=== PATIENT | male | born 1945 | race Caucasian/White ===

== ENCOUNTER 2023-03-04 10:12 | Observation (INO) | payer MEDICARE ==
[2023-03-04] MEDS ORDERED: VANCOMYCIN IV PER PHARMACY 1 EACH MISC MISCELLANE PRN (10:55)
[2023-03-04] MEDS ORDERED: VANCOMYCIN 2,000 MG in SODIUM CHLORIDE 0.9% 500 ML 500 ML IVPB STA (11:00)
[2023-03-04] MEDS ORDERED: NALOXONE 0.4 MG/ML 1 ML VIAL IV PRN (11:33)
[2023-03-04] MEDS ORDERED: ACETAMINOPHEN TAB 325 MG TAB PO PRN (11:33)
--- NOTE | 2023-03-04 11:41 | ED ---
General Adult HPI - General Chief complaint: Extremity Problem,Nontraumatic Stated complaint: Infection in Right arm Time Seen by Provider: 03/04/23 10:15 Source: patient, RN notes reviewed, old records reviewed Mode of arrival: ambulatory - History of Present Illness Initial comments: 77-year-old male presenting for evaluation of pain and swelling in the right arm. Patient had been gardening approximately one week ago and had a foreign to the proximal palm of his right hand. He had surrounding erythema and swelling which has progressed up the extremity. He has received IV antibiotics at an outside facility, IV ceftriaxone and has been on Augmentin and doxycycline orally for the past several days. He has had no measured fever but has had chills. He is a nondiabetic, history of hypertension. - Related Data Allergies Allergy/AdvReac Type Severity Reaction Status Date / Time No Known Allergies Allergy Verified 03/04/23 10:38 Review of Systems ROS Statement: Those systems with pertinent positive or pertinent negative responses have been documented in the HPI. ROS Other: All systems not noted in ROS Statement are negative. Past Medical History Past Medical History: Hypertension History of Any Multi-Drug Resistant Organisms: None Reported Past Surgical History: Bariatric Surgery, Cholecystectomy Additional Past Surgical History / Comment(s): gastric bypass, Past Psychological History: Depression Smoking Status: Never smoker Past Alcohol Use History: None Reported Past Drug Use History: None Reported General Exam General appearance: alert, in no apparent distress Head exam: Present: atraumatic, normocephalic Eye exam: Present: normal appearance, PERRL ENT exam: Present: normal exam Neck exam: Present: normal inspection. Absent: tenderness, meningismus Respiratory exam: Present: normal lung sounds bilaterally. Absent: respiratory distress Cardiovascular Exam: Present: regular rate, normal rhythm GI/Abdominal exam: Present: soft. Absent: distended, tenderness Extremities exam: Present: other (Erythema and soft tissue swelling of the right upper extremity from the wrist to the elbow. There is induration on the palmar side of the distal forearm. There is no abscess or palpable fluid collection. The range of motion at the wrist is normal. Range of motion of the digits is normal.) Neurological exam: Present: alert, oriented X3, CN II-XII intact. Absent: motor sensory deficit Psychiatric exam: Present: normal affect, normal mood Skin exam: Present: warm Course Vital Signs 03/04/23 10:32 Temperature 97.6 F Pulse Rate 68 Respiratory 20 Rate Blood Pressure 144/71 O2 Sat by Pulse 94 L Oximetry Medical Decision Making - Medical Decision Making Was pt. sent in by a medical professional or institution (TASH Cardona, RADIOLOGY MANAGER, urgent care, hospital, or half-way...) When possible be specific @ -No Did you speak to anyone other than the patient for history (EMS, parent, family, police, friend...)? What history was obtained from this source @ Case discussed with physician caring for the patient prior to arrival. Did you review nursing and triage notes (agree or disagree)? Why? @ -I reviewed and agree with nursing and triage notes Were old charts reviewed (outside hosp., previous admission, EMS record, old EKG, old radiological studies, urgent care reports/EKG's, half-way records)? Report findings @ -No old charts were reviewed Differential Diagnosis (chest pain, altered mental status, abdominal pain women, abdominal pain men, vaginal bleeding, weakness, fever, dyspnea, syncope, headache, dizziness, GI bleed, back pain, seizure, CVA, palpatations, mental health, musculoskeletal)? @ -[Abscess, cellulitis, necrotizing fasciitis EKG interpreted by me (3pts min.). @ -As above X-rays interpreted by me (1pt min.). @ -None done CT interpreted by me (1pt min.). @ -None done U/S interpreted by me (1pt. min.). @ -Right upper extremity ultrasound ordered, results pending What testing was considered but not performed or refused? (CT, X-rays, U/S, labs)? Why? @ -None What meds were considered but not given or refused? Why? @ -None Did you discuss the management of the patient with other professionals (professionals i.e. TASH Cardona, RADIOLOGY MANAGER, lab, RT, psych nurse, social sciences professor, antique refinisher, teacher, evp and chief operating officer, telephonic nurse case manager)? Give summary @ -[Case discussed with sound physician group. Family requests sound physician group. Was smoking cessation discussed for >3mins.? @ -No Was critical care preformed (if so, how long)? @ -No Were there social determinants of health that impacted care today? How? (Homelessness, low income, unemployed, alcoholism, drug addiction, transportation, low edu. Level, literacy, decrease access to med. care, snf, rehab)? @ -No Was there de-escalation of care discussed even if they declined (Discuss DNR or withdrawal of care, Hospice)? DNR status @ -No What co-morbidities impacted this encounter? (DM, HTN, Smoking, COPD, CAD, Cancer, CVA, ARF, Chemo, Hep., AIDS, mental health diagnosis, sleep apnea, morbid obesity)? @ -[Hypertension Was patient admitted / discharged? Hospital course, mention meds given and route, prescriptions, significant lab abnormalities, going to OR and other pertinent info. @ -77-year-old male presenting for evaluation of right upper extremity pain and erythema. Patient had been gardening approximately one week ago had a thorn to his distal palm. He had surrounding erythema and swelling which rapidly progressed he did appropriately treated on oral antibiotics and has received IV antibiotics at outside facility within the past several days. Blood cultures, laboratory testing, ultrasound has been ordered. Results are pending. Patient will be admitted to [facility]. Undiagnosed new problem with uncertain prognosis? @ -No Drug Therapy requiring intensive monitoring for toxicity (Heparin, Nitro, Insulin, Cardizem)? @ -No Were any procedures done? @ -No Diagnosis/symptom? @ Right upper extremity cellulitis failed outpatient treatment Acute, or Chronic, or Acute on Chronic? @ -[Acute Uncomplicated (without systemic symptoms) or Complicated (systemic symptoms)? @ -default Side effects of treatment? @ -No Exacerbation, Progression, or Severe Exacerbation? @ -No Poses a threat to life or bodily function? How? (Chest pain, [place], [place], pneumonia, PE, COPD, DKA, ARF, appy, cholecystitis, CVA, Diverticulitis, Homicidal, Suicidal, threat to staff... and all critical care pts) @ Yes, sepsis Disposition Clinical Impression: Failure of outpatient treatment, Right arm cellulitis Disposition: ADMITTED IP TO THIS [facility] Condition: Stable Is patient prescribed a controlled substance at d/c from ED?: No Referrals: Parisa Hernandez DO [Primary Care Provider] - 1-2 days Time of Disposition: 11:40
[2023-03-04 12:31] LABS: Basophils % (A) 0 %; Eosinophils # (A) 0.3 k/uL (0-0.7); Eosinophils % (A) 3 %; HCT 35.5 % (39.0-53.0); HGB 11.1 gm/dL (13.0-17.5); Hypochromasia Moderate; Lymphocytes % (A) 12 %; MCH 27.7 pg (25.0-35.0); MCHC 31.1 g/dL (31.0-37.0); MCV 88.9 fL (80.0-100.0); Mean Platelet Volume 9.6; Monocytes # (A) 0.7 k/uL (0-1.0); Monocytes % (A) 8 %; Neutrophils # (A) 6.4 k/uL (1.3-7.7); Neutrophils % (A) 75 %; Platelet Count 188 k/uL (150-450); RBC 3.99 m/uL (4.30-5.90); RDW 15.3 % (11.5-15.5); WBC 8.6 k/uL (3.8-10.6)
[2023-03-04] MEDS: AMPICILLIN-SULBACTAM 3 GM in SODIUM CHLORIDE 0.9% 100 ML IVPB SCH ×2 (12:35→16:04)
[2023-03-04] MEDS: SODIUM CHLORIDE 0.9% 1,000 ML IV SCH ×2 (12:37→18:09)
[2023-03-04 12:46] LABS: Partial Thromboplastin Time 24.2 sec (22.0-30.0); Prothrombin Time 10.2 sec (9.0-12.0)
[2023-03-04 13:07] LABS: ALT 14 U/L (4-49); African American GFR (CKD) >90 (>60 ml/min/1.73 sqM); Anion Gap 6 mmol/L; Blood Urea Nitrogen 9 mg/dL (9-20); Calcium 8.2 mg/dL (8.4-10.2); Carbon Dioxide 25 mmol/L (22-30); Chloride 104 mmol/L (98-107); Glucose 82 mg/dL (74-99); Non-African American GFR(CKD) >90 (>60 ml/min/1.73 sqM); Sodium 135 mmol/L (137-145); Total Bilirubin 0.8 mg/dL (0.2-1.3)
[2023-03-04 13:11] LABS: AST 52 U/L (17-59); Albumin 3.1 g/dL (3.5-5.0); Alkaline Phosphatase 64 U/L (38-126); Potassium 5.1 mmol/L (3.5-5.1); Total Protein 6.7 g/dL (6.3-8.2)
--- NOTE | 2023-03-04 14:05 | US ---
EXAMINATION TYPE: US venous doppler duplex UE LT DATE OF EXAM: 03/04/2023 COMPARISON: NONE CLINICAL INDICATION: Male, 77 years old with history of pain/swelling; right arm infection, r/o dvt SIDE PERFORMED: right Right Arm: Negative for DVT IMPRESSION: Grayscale, color doppler, spectral doppler imaging performed of the deep veins of the upper extremiti es. There is normal flow, compressibility and vascular waveforms.
--- NOTE | 2023-03-04 15:06 | P.HPIM ---
History of Present Illness H&P Date: 03/04/23 Patient is a 77-year-old male with history of hypertension, peptic ulcer disease, depression presenting with right arm erythema, pain, and edema. He was working with plants 1 week ago, and had a puncture wound on right anterior wrist. He waited 2 days, and noticed that his arm was becoming more swollen and redness was moving more proximal. He was then started on oral antibiotics, also decided to go to an urgent care was given Rocephin IM, 2 doses. Was recommended to be admitted but he would needed to be transferred, so he decided to go home. However due to worsening edema, erythema, and pain is presenting to our facility for further care. He denies any chest pain, shortness of breath, abdominal pain, nausea, vomiting, urinary or bowel complaints. He claims that he has some chills, but denies any fevers. He denies any smoking, alcohol use, illicit drug use. In the ED, temperature was 97.6, pulse 68, respiratory 20, blood pressure 144/71, saturating at 94% on room air. WBC 8.6, hemoglobin 11.1, platelet 188, sodium 135, potassium slightly hemolyzed at 5.1, creatinine 0.69. Right arm Doppler was negative for DVT. Patient started on IV vancomycin, and IV Unasyn, as well as IV fluids. He is being admitted for cellulitis of right arm, failed outpatient antibiotic therapy. Pertinent positives and negatives as discussed in HPI, a complete review of systems was performed and all other systems are negative. Patient seen and examined at bedside. Vital signs reviewed General: nontoxic, no distress, appears at stated age, morbidly obese Derm: warm, dry, right forearm erythema, edema, tenderness to palpation starting at right anterior wrist and tracking up to proximal elbow Head: atraumatic, normocephalic, symmetric Eyes: EOMI, no lid lag, anicteric sclera, pupils equal round reactive to light ENT: Nose and ears atraumatic Neck: No thyromegaly, supple Mouth: no lip lesion, mucus membranes moist Cardiovascular: S1S2 reg, no murmur, no edema Lungs: clear to auscultation bilateral, no rhonchi, no rales, no wheeze, no accessory muscle use Abdominal: soft, nontender to palpation, no guarding, no appreciable organomegaly Ext: no gross muscle atrophy, muscle strength muscle strength 5 out of 5 in all 4 extremities, no contractures Neuro: CN II-XII grossly intact Psych: Alert, oriented, appropriate affect Assessment/Plan: Active: Right arm cellulitis, failed outpatient antibiotic therapy Normocytic anemia -Continue IV vancomycin and IV Unasyn, monitor renal function for renal toxicity -ID and orthopedic surgery consulted -Blood cultures pending -No active bleeding, continue to monitor hemoglobin Chronic: Hypertension Peptic ulcer disease Depression Morbid obesity The patient is admitted with an anticipated greater than 2 midnight stay as inpatient status for evaluation of right arm cellulitis. Surrogate decision-maker: CODE STATUS: Full code DVT prophylaxis: sq heparin Anticipated discharge date: Pending clinical course Anticipated discharge place: Pending clinical course A total of 55 minutes was spent on the care of this complex patient more than 50% of the time was spent in counseling and care coordination. Past Medical History Past Medical History: Hypertension History of Any Multi-Drug Resistant Organisms: None Reported Past Surgical History: Bariatric Surgery, Cholecystectomy Additional Past Surgical History / Comment(s): gastric bypass, Past Psychological History: Depression Smoking Status: Never smoker Past Alcohol Use History: None Reported Past Drug Use History: None Reported Medications and Allergies Allergies Allergy/AdvReac Type Severity Reaction Status Date / Time No Known Allergies Allergy Verified 03/04/23 10:38 Physical Exam Vitals: Vital Signs Temp Pulse Resp BP Pulse Ox 03/04/23 14:55 98.5 F 60 17 148/75 96 03/04/23 12:45 98.2 F 61 17 134/65 95 03/04/23 10:32 97.6 F 68 20 144/71 94 L Intake and Output 03/04/23 03/04/23 03/04/23 06:59 14:59 22:59 Other: Weight 133.81 kg Results CBC & Chem 7: 03/04/23 12:10 03/04/23 12:10 Labs: Abnormal Lab Results - Last 24 Hours (Table) 03/04/23 03/04/23 Range/Units 12:10 12:10 RBC 3.99 L (4.30-5.90) m/uL Hgb 11.1 L (13.0-17.5) gm/dL Hct 35.5 L (39.0-53.0) % Sodium 135 L (137-145) mmol/L Calcium 8.2 L (8.4-10.2) mg/dL Albumin 3.1 L (3.5-5.0) g/dL
--- NOTE | 2023-03-04 15:58 | P.CNOR ---
History of Present Illness - [facility] Consult date: 03/04/23 Consult reason: other (Right upper extremity cellulitis) History of present illness: Patient is a 77-year-old male who presented to [facility] for further evaluation of right upper extremity swelling and cellulitis. Patient was doing some gardening about a week ago when he was poked by a thorn on the volar aspect of his right wrist. Patient developed swelling and redness over the next few days. Patient was evaluated in the outpatient setting in an urgent care, he was given an intramuscular injection of antibiotics and started on oral antibiotics. Symptoms have progressively gotten worse, he did report to the hospital today for further evaluation. Patient was evaluated today at bedside in the emergency room, he was resting comfortably, patient does not appear septic. He notes most discomfort when his arm is pain down at his side, he notes more of a swelling type discomfort in the extremity and hand. He denies any loss of sensation in the hand, wrist and forearm at this time. He denies any significant pain with range of motion of the fingers, wrist, elbow. Besides being poked by the thorn, he denies any recent trauma to the repair extremity. He denies any previous surgery to the right upper extremity. He denies any fevers or chills.. Review of Systems Constitutional: Reports as per [facility] Past Medical History Past Medical History: Hypertension History of Any Multi-Drug Resistant Organisms: None Reported Past Surgical History: Bariatric Surgery, Cholecystectomy Additional Past Surgical History / Comment(s): gastric bypass, Past Psychological History: Depression Smoking Status: Never smoker Past Alcohol Use History: None Reported Past Drug Use History: None Reported Medications and Allergies Allergies Allergy/AdvReac Type Severity Reaction Status Date / Time No Known Allergies Allergy Verified 03/04/23 10:38 Physical Examination Right upper extremity: No obvious open lesions, sores or areas of drainage present to the right upper extremity. There is significant erythema noted mainly on the volar aspect of the wrist and forearm, there is mild erythema noted on the dorsum of the forearm. There is obvious soft tissue swelling present from the wrist to proximal third of the forearm. Patient is able to wiggle all his fingers and make a fist with no difficulty. Extending and flexing the fingers reproduces no significant pain. Patient is able to extend and flex the wrist with minimal discomfort, this reproduces no severe pain in the forearm both volar and dorsal. Range of motion is intact at the elbow, there is no pain reproduced Patient demonstrates mild tenderness with palpation to the wrist and distal forearm on the volar aspect. No pain is reproduced on the dorsal aspect of the wrist and forearm with palpation. No tenderness with palpation surrounding the elbow. Sensation to light touch is intact throughout the extremity Radial/ulnar pulses are 2+ Results - Labs Labs: Abnormal Lab Results - Last 24 Hours (Table) 03/04/23 03/04/23 Range/Units 12:10 12:10 RBC 3.99 L (4.30-5.90) m/uL Hgb 11.1 L (13.0-17.5) gm/dL Hct 35.5 L (39.0-53.0) % Sodium 135 L (137-145) mmol/L Calcium 8.2 L (8.4-10.2) mg/dL Albumin 3.1 L (3.5-5.0) g/dL H & H 03/04/23 Range/Units 12:10 Hgb 11.1 L (13.0-17.5) gm/dL Hct 35.5 L (39.0-53.0) % Coagulation 03/04/23 Range/Units 12:10 INR 1.0 (<1.2) Result Diagrams: 03/04/23 12:10 03/04/23 12:10 Assessment and Plan Assessment: Right upper extremity cellulitis Recent puncture wound right volar wrist Other medical comorbidities Plan: I was able to discuss the case, this including both physical exam findings and laboratory studies with my attending Dr. Faulkner. No emergent orthopedic surgical intervention is recommended at this time. Low concern for abscess at this time Doppler was done of the right upper extremity which was negative for DVT Recommending IV antibiotics at this time, infectious disease has also been consulted Recommend icing and elevating of the right upper extremity, basic hand and wrist exercises also Other medical technician assistant recommendations appreciated We will continue to follow patient during inpatient stay Time with Patient: Less than 30
[2023-03-04] MEDS: HEPARIN SODIUM,PORCINE 5,000 UNIT/ML 1 ML VIAL SQ SCH ×2 (16:04→23:12)
[2023-03-04 21:54] VITALS: RESP 18
[2023-03-04] MEDS: VANCOMYCIN 2,000 MG in SODIUM CHLORIDE 0.9% 500 ML 500 ML IVPB SCH (22:17)
[2023-03-05] MEDS: AMPICILLIN-SULBACTAM 3 GM in SODIUM CHLORIDE 0.9% 100 ML IVPB SCH ×5 (01:31→23:12)
[2023-03-05] MEDS: SODIUM CHLORIDE 0.9% 1,000 ML IV SCH ×3 (02:10→20:58)
[2023-03-05 07:30] LABS: African American GFR (CKD) >90 (>60 ml/min/1.73 sqM); Anion Gap 5 mmol/L; Blood Urea Nitrogen 7 mg/dL (9-20); Calcium 7.8 mg/dL (8.4-10.2); Carbon Dioxide 25 mmol/L (22-30); Chloride 106 mmol/L (98-107); Glucose 83 mg/dL (74-99); Non-African American GFR(CKD) >90 (>60 ml/min/1.73 sqM); Potassium 4.1 mmol/L (3.5-5.1); Sodium 136 mmol/L (137-145)
[2023-03-05 07:32] LABS: African American GFR (CKD) >90 (>60 ml/min/1.73 sqM); Non-African American GFR(CKD) >90 (>60 ml/min/1.73 sqM)
[2023-03-05 07:35] LABS: Basophils % (A) 0 %; Eosinophils # (A) 0.3 k/uL (0-0.7); Eosinophils % (A) 3 %; HCT 35.1 % (39.0-53.0); HGB 10.6 gm/dL (13.0-17.5); Hypochromasia Marked; Lymphocytes # (A) 1.3 k/uL (1.0-4.8); Lymphocytes % (A) 15 %; MCH 27.5 pg (25.0-35.0); MCHC 30.2 g/dL (31.0-37.0); MCV 90.9 fL (80.0-100.0); Mean Platelet Volume 10.3; Monocytes # (A) 0.8 k/uL (0-1.0); Monocytes % (A) 9 %; Neutrophils # (A) 6.1 k/uL (1.3-7.7); Neutrophils % (A) 71 %; Platelet Count 186 k/uL (150-450); RBC 3.86 m/uL (4.30-5.90); RDW 15.2 % (11.5-15.5); WBC 8.6 k/uL (3.8-10.6)
[2023-03-05] MEDS: PANTOPRAZOLE 40 MG TABLET PO SCH (07:36)
[2023-03-05] MEDS: HEPARIN SODIUM,PORCINE 5,000 UNIT/ML 1 ML VIAL SQ SCH ×3 (07:37→23:12)
[2023-03-05] MEDS: METOPROLOL SUCCINATE (ER) 50 MG TAB.ER.24H PO SCH (08:14)
[2023-03-05] MEDS: lisinopriL 20 MG TAB PO SCH (08:14)
[2023-03-05] MEDS: VENLAFAXINE HCL ER 150 MG CAP PO SCH (08:14)
[2023-03-05] MEDS: VANCOMYCIN 2,000 MG in SODIUM CHLORIDE 0.9% 500 ML 500 ML IVPB SCH ×2 (10:32→23:11)
--- NOTE | 2023-03-05 14:28 | P.CONS ---
History of Present Illness - Reason for Consult Consult date: 03/04/23 Cellulitis Requesting physician: Edgar Santana - Chief Complaint Right upper extremity swelling and redness x few days - History of Present Illness Patient is a 77-year-old man with a past medical history significant for hypertension depression presented to the hospital with increasing swelling redness to the right upper extremity apparently about a week ago while gardening the patient did have a injury with the patient was poked by a Tori on the vola r aspect of his right wrist, 3 days later the patient having increasing swelling redness to the right forearm area for the patient was evaluated in urgent care the patient did received intramuscular Rocephin and subsequently sent on Keflex antibiotic was switched over to doxycycline and Augmentin however the patient noticed to have increasing swelling redness right upper extremity for the patient presented to the hospital for further evaluation. Patient denies having any fever or any chills and no fever has been recorded on presentation to the hospital patient was not bradycardic hypotensive or hypoxic did have a normal white count of 8.6 creatinine 0.69 lower enzymes are normal, patient did have a venous Doppler that was negative for DVT patient was started on Unasyn and vancomycin and infectious disease was consulted for further management of antibiotic therapy, patient currently may symptom remains to be significant swelling redness to the right upper arm did have some discomfort es pecially when touched but no open wound or any drainage patient has been evaluated by orthopedic recommending no surgical intervention at this point Review of Systems Positive point and negatives has been mentioned in the HPI, complete review of systems was performed and all other systems are negative Past Medical History Past Medical History: Hypertension History of Any Multi-Drug Resistant Organisms: None Reported Past Surgical History: Bariatric Surgery, Cholecystectomy Additional Past Surgical History / Comment(s): gastric bypass, Past Psychological History: Depression Smoking Status: Never smoker Past Alcohol Use History: None Reported Past Drug Use History: None Reported Medications and Allergies Home Medications Medication Instructions Recorded Confirmed Type Benazepril HCl 40 mg PO HS 03/04/23 03/04/23 History Magnesium(Unknown Dose) 1 tab PO HS 03/04/23 03/04/23 History Metoprolol Succinate [Toprol XL] 50 mg PO HS 03/04/23 03/04/23 History Multivitamins, Thera [Multivitamin 1 tab PO HS 03/04/23 03/04/23 History (formulary)] Omeprazole 20 mg PO HS 03/04/23 03/04/23 History Venlafaxine HCl [Effexor XR] 150 mg PO HS 03/04/23 03/04/23 History Vitamin B-12(Unknown Dose) 1 tab PO HS 03/04/23 03/04/23 History Cephalexin [Keflex] 500 mg PO Q6HR 10 Days #40 cap 03/07/23 Rx Doxycycline Hyclate 100 mg PO Q12H 10 Days #20 tab 03/07/23 Rx Allergies Allergy/AdvReac Type Severity Reaction Status Date / Time No Known Allergies Allergy Verified 03/04/23 15:49 Physical Exam Vitals: Vital Signs Temp Pulse Resp BP Pulse Ox 03/04/23 12:45 98.2 F 61 17 134/65 95 03/04/23 10:32 97.6 F 68 20 144/71 94 L Intake and Output 03/03/23 03/04/23 03/04/23 22:59 06:59 14:59 Other: Weight 133.81 kg GENERAL DESCRIPTION: Elderly male up in the chair, no distress. No tachypnea or accessory muscle of respiration use. HEENT: Shows Pallor , no scleral icterus. Oral mucous membrane is dry. NECK: Trachea central, no thyromegaly. LUNGS: Unlabored breathing. Clear to auscultation anteriorly. No wheeze or crackle. HEART: S1, S2, regular rate and rhythm. No loud murmur ABDOMEN: Soft, no tenderness , guarding or rigidity, no organomegaly EXTREMITIES: Right upper extremity with extensive diffuse swelling and redness which is warm and tender to touch no fluctuation or drainage SKIN: No rash, no masses palpable. NEUROLOGICAL: The patient is awake, alert, oriented x3, mood and affect normal. Results CBC & Chem 7: 03/05/23 06:31 03/07/23 09:26 Labs: Abnormal Lab Results - Last 24 Hours (Table) 03/04/23 Range/Units 12:10 RBC 3.99 L (4.30-5.90) m/uL Hgb 11.1 L (13.0-17.5) gm/dL Hct 35.5 L (39.0-53.0) % Assessment and Plan (1) Failure of outpatient treatment Status: Acute Code(s): Z78.9 - OTHER SPECIFIED HEALTH STATUS SNOMED Code(s): 362464408 (2) Right arm cellulitis Status: Acute Code(s): L03.113 - CELLULITIS OF RIGHT UPPER LIMB SNOMED Code(s): 071823206 Plan: 1patient with right upper extremity cellulitis in this patient with diffuse swelling and redness started with injury from a Tori in the garden more than 10 days ago before presentation to the hospital failing outpatient oral Keflex and doxycycline with a question of possible burden of disease 2-no evidence of any abscess and orthopedic recommending no surgical drainage 3-Dorian area of redness apply Andrew wrap to the right arm to keep some of the swelling down 4-patient to continue vancomycin for Marisela to dose 1 watching his kidney function closely along with Unasyn and see clinical response We will follow on clinical condition and cultures to further adjust medication if needed Thank you for this consultation will follow this patient with you Time with Patient: Greater than 30
--- NOTE | 2023-03-05 15:00 | P.PN ---
Subjective Progress Note Date: 03/05/23 Patient is a 77-year-old male with history of hypertension, peptic ulcer disease, depression presenting with right arm erythema, pain, and edema. He was working with plants 1 week ago, and had a puncture wound on right anterior wrist. Decided to go to an urgent care was given Rocephin IM, 2 doses. However due to worsening edema, erythema, and pain is presenting to our facility for further care. In the ED, temperature was 97.6, pulse 68, respiratory 20, blood pressure 144/71, saturating at 94% on room air. WBC 8.6, hemoglobin 11.1, platelet 188, sodium 135, potassium slightly hemolyzed at 5.1, creatinine 0.69. Right arm Doppler was negative for DVT. Patient started on IV vancomycin, and IV Unasyn, as well as IV fluids. He is being admitted for cellulitis of right arm, failed outpatient antibiotic therapy. 03/05 Patient seen and examined at bedside. He reports improvement in his RUE swelling but continues to have significant erythema extending to the right elbow. CBC shows Hg of 10.6. BMP shows Na 136, BUN 7, Ca 7.8. Blood culture prelim negative. General: nontoxic, no distress, appears at stated age, morbidly obese Derm: warm, dry, right forearm erythema, edema, tenderness to palpation starting at right anterior wrist and tracking up to proximal elbow Head: atraumatic, normocephalic, symmetric Eyes: EOMI, no lid lag, anicteric sclera ENT: Nose and ears atraumatic Cardiovascular: S1S2 reg, no murmur, no edema Lungs: clear to auscultation bilateral, no rhonchi, no rales, no wheeze, no accessory muscle use Ext: no gross muscle atrophy, muscle strength muscle strength 5 out of 5 in all 4 extremities, no contractures Psych: Alert, oriented, appropriate affect Right arm cellulitis, failed outpatient antibiotic therapy Normocytic anemia Hypertension Peptic ulcer disease Depression Morbid obesity Based on my assessment of this patient, this patient meets a high complexity level of care. Patient has an acute diagnosis of cellulitis failed outpatient treatment with unknown significance. Right arm cellulitis, failed outpatient antibiotic therapy: Continue Unasyn 3g IV Q6H + Vancomycin IV dosed per pharmacy. Daily BMP as Vancomycin is known to be nephrotoxic. Possibly coverage for Sporothrix if cellulitis does not improved. Normocytic anemia: Stable. Transfuse if Hg < 7. Hypertension Peptic ulcer disease Depression Morbid obesity I have reviewed the following websphere consultant notes: ID and orthopedic surgery note. I have reviewed the results of the following tests: CBC. BMP. BCx. I have ordered the following tests: BMP. Vancomycin trough. I have discussed the care of this patient with the following independent historian: I have independently interpreted the following test below: I have discussed the management of this patient with the following physician: Objective - Vital Signs Vital signs: Vital Signs Temp 98.5 F 03/04/23 18:08 Pulse 65 03/05/23 07:00 Resp 18 03/05/23 07:00 BP 141/64 03/05/23 07:00 Pulse Ox 95 03/05/23 07:00 FiO2 Intake & Output 03/04/23 03/05/23 03/05/23 18:59 06:59 18:59 Weight 133.81 kg - Labs CBC & Chem 7: 03/05/23 06:31 03/05/23 06:31 Labs: Abnormal Lab Results - Last 24 Hours (Table) 03/05/23 03/05/23 Range/Units 06:31 06:31 RBC 3.86 L (4.30-5.90) m/uL Hgb 10.6 L (13.0-17.5) gm/dL Hct 35.1 L (39.0-53.0) % MCHC 30.2 L (31.0-37.0) g/dL Sodium 136 L (137-145) mmol/L BUN 7 L (9-20) mg/dL Calcium 7.8 L (8.4-10.2) mg/dL
--- NOTE | 2023-03-05 15:49 | P.PN ---
Subjective Progress Note Date: 03/05/23 Principal diagnosis: Right upper extremity cellulitis; puncture wound right wrist Patient was seen at bedside this morning sitting up in chair still in the emergency department. Patient currently on IV Vanco. Patient notes no changes from yesterday. Patient doesn't note any decrease or increase in swelling in the right upper extremity. Patient states he does have good range of motion in the right hand last wrist as well as the right elbow. Patient says his pain is controlled with medication. Patient is wondering when the some of the swelling and redness will decrease his arm. Patient denies chest pain, fever, shortness of breath, nausea, vomiting, change in vision, loss of bowel/bladder control. Objective - Vital Signs Vital signs: Vital Signs Temp 98.5 F 03/04/23 18:08 Pulse 65 03/05/23 07:00 Resp 18 03/05/23 07:00 BP 141/64 03/05/23 07:00 Pulse Ox 95 03/05/23 07:00 FiO2 Intake & Output 03/04/23 03/05/23 03/05/23 18:59 06:59 18:59 Weight 133.81 kg - Exam Right upper extremity presents with erythema from the volar aspect of the proximal right hand all the way up proximally to the right elbow. Swelling is present diffusely throughout the right hand and in the right forearm to the elbow. Sensation is equal, symmetric 1 by intact throughout the upper and lower extremities. There is some tenderness to palpation diffusely throughout the forearm where the erythema is present. Patient does have good range of motion throughout the right wrist in flexion/extension and right elbow in flexion/extension.4/5 in all major motor groups in right upper extremity. Radial pulses intact, 2+. Cap refill under 3 seconds in digits the upper extremities. Negative Homans bilaterally. - Labs CBC & Chem 7: 03/05/23 06:31 03/05/23 06:31 Labs: Abnormal Lab Results - Last 24 Hours (Table) 03/04/23 03/04/23 03/05/23 Range/Units 12:10 12:10 06:31 RBC 3.99 L 3.86 L (4.30-5.90) m/uL Hgb 11.1 L 10.6 L (13.0-17.5) gm/dL Hct 35.5 L 35.1 L (39.0-53.0) % MCHC 30.2 L (31.0-37.0) g/dL Sodium 135 L (137-145) mmol/L BUN (9-20) mg/dL Calcium 8.2 L (8.4-10.2) mg/dL Albumin 3.1 L (3.5-5.0) g/dL 03/05/23 Range/Units 06:31 RBC (4.30-5.90) m/uL Hgb (13.0-17.5) gm/dL Hct (39.0-53.0) % MCHC (31.0-37.0) g/dL Sodium 136 L (137-145) mmol/L BUN 7 L (9-20) mg/dL Calcium 7.8 L (8.4-10.2) mg/dL Albumin (3.5-5.0) g/dL Assessment and Plan Assessment: 1. Right upper extremity cellulitis; puncture wound right wrist Plan: 1. Right upper extremity cellulitis; puncture wound right wrist - patient stable at bedside this morning in the emergency department receiving IV antibiotics. Awaiting on available bed on the floor. Low concern for any septic arthritis in the wrist. We recommend continued conservative measures pain medication as needed. Weightbearing as tolerated. May apply ice packs to help with the swelling. At this time we are recommending patient to continue to receive IV antibiotics. We are not recommending any emergent/urgent orthopedic surgical intervention. We'll continue to follow patient during his stay in hospital. 2. Appreciate medical management 3. Pain management - Tylenol 4. DVT prophylaxis - heparin 5. GI prophylaxis - Protonix 6. PT/OT - weightbearing as tolerated Time with Patient: Less than 30
--- NOTE | 2023-03-05 16:21 | P.PN ---
Subjective Progress Note Date: 03/05/23 Principal diagnosis: Right upper extremity cellulitis Patient is a 77-year-old man with a past medical history significant for hypertension depression presented to the hospital with increasing swelling redness to the right upper extremity apparently about a week ago while gardening , subsequently presented to hospital with increasing swelling redness to the right upper extremity concerning for cellulitis on today's evaluation that is 03/05/2023, the patient denies having any fever or chills, the patient is breathing comfortably no chest pain shortness of breath or cough no nausea no but no abdominal pain swelling and redness of the right upper extremity has slightly decreased Patient did have a hemoglobin of 10.6, white count of 8.6 creatinine 0.66 Objective - Vital Signs Vital signs: Vital Signs Temp 98.5 F 03/04/23 18:08 Pulse 65 03/05/23 07:00 Resp 18 03/05/23 07:00 BP 141/64 03/05/23 07:00 Pulse Ox 95 03/05/23 07:00 FiO2 Intake & Output 03/04/23 03/05/23 03/05/23 18:59 06:59 18:59 Weight 133.81 kg - Exam GENERAL DESCRIPTION: An elderly male up in the chair in no distress RESPIRATORY SYSTEM: Unlabored breathing , decreased breath sounds at bases HEART: S1 S2 regular rate and rhythm , ABDOMEN: Soft , no tenderness EXTREMITIES: Right upper extremity swelling redness slightly decreased - Labs CBC & Chem 7: 03/05/23 06:31 03/05/23 06:31 Labs: Abnormal Lab Results - Last 24 Hours (Table) 03/04/23 03/04/23 03/05/23 Range/Units 12:10 12:10 06:31 RBC 3.99 L 3.86 L (4.30-5.90) m/uL Hgb 11.1 L 10.6 L (13.0-17.5) gm/dL Hct 35.5 L 35.1 L (39.0-53.0) % MCHC 30.2 L (31.0-37.0) g/dL Sodium 135 L (137-145) mmol/L BUN (9-20) mg/dL Calcium 8.2 L (8.4-10.2) mg/dL Albumin 3.1 L (3.5-5.0) g/dL 03/05/23 Range/Units 06:31 RBC (4.30-5.90) m/uL Hgb (13.0-17.5) gm/dL Hct (39.0-53.0) % MCHC (31.0-37.0) g/dL Sodium 136 L (137-145) mmol/L BUN 7 L (9-20) mg/dL Calcium 7.8 L (8.4-10.2) mg/dL Albumin (3.5-5.0) g/dL Assessment and Plan (1) Failure of outpatient treatment Current Visit: Yes Status: Acute Code(s): Z78.9 - OTHER SPECIFIED HEALTH STATUS SNOMED Code(s): 942174475 (2) Right arm cellulitis Current Visit: Yes Status: Acute Code(s): L03.113 - CELLULITIS OF RIGHT UPPER LIMB SNOMED Code(s): 468982940 Plan: 1patient with right upper extremity cellulitis in this patient with diffuse swelling and redness started with injury from a Tori in the garden more than 10 days ago before presentation to the hospital failing outpatient oral Keflex and doxycycline with a question of possible burden of disease 2-no evidence of any abscess and orthopedic recommending no surgical drainage 3Patient did have some clinical improvement and will continue vancomycin pharmacy to dose and Unasyn while waiting for the culture finalized Time with Patient: Less than 30
[2023-03-06] MEDS: SODIUM CHLORIDE 0.9% 1,000 ML IV SCH ×3 (01:16→17:49)
[2023-03-06] MEDS: AMPICILLIN-SULBACTAM 3 GM in SODIUM CHLORIDE 0.9% 100 ML IVPB SCH ×3 (05:20→17:48)
[2023-03-06 06:26] LABS: African American GFR (CKD) >90 (>60 ml/min/1.73 sqM); Non-African American GFR(CKD) >90 (>60 ml/min/1.73 sqM)
[2023-03-06] MEDS: lisinopriL 20 MG TAB PO SCH (09:32)
[2023-03-06] MEDS: METOPROLOL SUCCINATE (ER) 50 MG TAB.ER.24H PO SCH (09:32)
[2023-03-06] MEDS: PANTOPRAZOLE 40 MG TABLET PO SCH (09:32)
[2023-03-06] MEDS: VENLAFAXINE HCL ER 150 MG CAP PO SCH (09:32)
[2023-03-06] MEDS: HEPARIN SODIUM,PORCINE 5,000 UNIT/ML 1 ML VIAL SQ SCH ×2 (09:32→17:48)
[2023-03-06] MEDS: VANCOMYCIN 2,000 MG in SODIUM CHLORIDE 0.9% 500 ML 500 ML IVPB SCH ×2 (11:41→22:00)
--- NOTE | 2023-03-06 11:59 | P.PN ---
Subjective Progress Note Date: 03/06/23 Principal diagnosis: Right upper extremity cellulitis; puncture wound right wrist Patient was seen at bedside this morning sitting up in chair receiving IV antibiotics. Patient says that he is noting improvement in the swelling in the area of erythema in his right arm since yesterday. Patient says he still has good range of motion in his right elbow and right wrist. Patient denies any other issues at this time. Patient denies chest pain, fever, shortness breath, nausea, vomiting, change in vision, loss of bowel/bladder control. Objective - Vital Signs Vital signs: Vital Signs Temp 98.3 F 03/06/23 07:02 Pulse 65 03/06/23 07:02 Resp 18 03/06/23 07:02 BP 145/72 03/06/23 07:02 Pulse Ox 97 03/06/23 07:02 FiO2 Intake & Output 03/05/23 03/06/23 03/06/23 18:59 06:59 18:59 Weight 133.81 kg Other: Voiding Method Toilet Urinal - Exam Right upper extremity presents with erythema from the volar aspect of the proximal right hand all the way up proximally to the right elbow. Area pof erythema is decreasing and localizing to forearm vs yesterday. Swelling which does seem to be improving since yesterday. Swelling is present diffusely throughout the right hand and in the right forearm to the elbow. Sensation is e qual, symmetric bilaterally intact throughout the upper and lower extremities. There is some tenderness to palpation diffusely throughout the forearm where the erythema is present. Patient does have good range of motion throughout the right wrist in flexion/extension and right elbow in flexion/extension.4/5 in all major motor groups in right upper extremity. Radial pulses intact, 2+. Cap refill under 3 seconds in digits the upper extremities. Negative Homans bilaterally. - Labs CBC & Chem 7: 03/05/23 06:31 03/06/23 05:40 Labs: Microbiology - Last 24 Hours (Table) 03/04/23 11:55 Blood Culture - Preliminary Blood 03/04/23 12:10 Blood Culture - Preliminary Blood Assessment and Plan Assessment: 1. Right upper extremity cellulitis; puncture wound right wrist Plan: 1. Right upper extremity cellulitis; puncture wound right wrist - patient stable at bedside this morning receiving IV antibiotics. Low concern for any septic arthritis in the wrist. On exam today swelling decreasing and area of erythema decreasing. We recommend continued conservative measures pain medication as needed. Weightbearing as tolerated. May apply ice packs to help with the swelling. At this time we are recommending patient to continue to receive IV antibiotics. We are not recommending any emergent/urgent orthopedic surgical intervention. We recommend patient to follow up in office with Dr. Faulkner as needed for continued care. Patient is stable from an orthopedic standpoint for discharge. Orthopedics is signing off at this time. Please do not hesitate to contact us for any further questions. 2. Appreciate medical management 3. Pain management - Tylenol 4. DVT prophylaxis - heparin 5. GI prophylaxis - Protonix 6. PT/OT - weightbearing as tolerated Time with Patient: Less than 30
--- NOTE | 2023-03-06 13:00 | P.PN ---
Subjective Progress Note Date: 03/06/23 Patient is a 77-year-old male with history of hypertension, peptic ulcer disease, depression presenting with right arm erythema, pain, and edema. He was working with plants 1 week ago, and had a puncture wound on right anterior wrist. Decided to go to an urgent care was given Rocephin IM, 2 doses. However due to worsening edema, erythema, and pain is presenting to our facility for further care. In the ED, temperature was 97.6, pulse 68, respiratory 20, blood pressure 144/71, saturating at 94% on room air. WBC 8.6, hemoglobin 11.1, platelet 188, sodium 135, potassium slightly hemolyzed at 5.1, creatinine 0.69. Right arm Doppler was negative for DVT. Patient started on IV vancomycin, and IV Unasyn, as well as IV fluids. He is being admitted for cellulitis of right arm, failed outpatient antibiotic therapy. 03/05 Patient seen and examined at bedside. He reports improvement in his RUE swelling and erythema extending to the right elbow. Renal function within normal limits. Blood culture prelim negative. General: nontoxic, no distress, appears at stated age, morbidly obese Derm: warm, dry, right forearm erythema, edema, tenderness to palpation starting at right anterior wrist and tracking up to proximal elbow ( erythema has improved since yesterday) Head: atraumatic, normocephalic, symmetric Eyes: EOMI, no lid lag, anicteric sclera ENT: Nose and ears atraumatic Cardiovascular: good distal perfusion in all 4 extremities Lungs: breathing comfortably, no accessory muscle use Ext: no gross muscle atrophy, muscle strength muscle strength 5 out of 5 in all 4 extremities, no contractures Psych: Alert, oriented, appropriate affect Right arm cellulitis, failed outpatient antibiotic therapy Normocytic anemia Hypertension Peptic ulcer disease Depression Morbid obesity Based on my assessment of this patient, this patient meets a high complexity level of care. Patient has an acute diagnosis of cellulitis failed outpatient treatment with unknown significance. Right arm cellulitis, failed outpatient antibiotic therapy: Continue Unasyn 3g IV Q6H + Vancomycin IV dosed per pharmacy. Daily BMP as Vancomycin is known to be nephrotoxic. Possibly coverage for Sporothrix if cellulitis does not improved. Normocytic anemia: Stable. Transfuse if Hg < 7. Hypertension Peptic ulcer disease Depression Morbid obesity Continue IV antibiotics for 1 more day. Possibly transition to PO Abx tomorrow. I have reviewed the following ux consultant notes: Orthopedic surgery note. I have reviewed the results of the following tests: Renal function. BCx. I have ordered the following tests: BMP. Vancomycin trough. I have discussed the care of this patient with the following independent histor michael: I have independently interpreted the following test below: I have discussed the management of this patient with the following physician: Objective - Vital Signs Vital signs: Vital Signs Temp 98.7 F 03/06/23 11:52 Pulse 63 03/06/23 11:52 Resp 18 03/06/23 11:52 BP 150/75 03/06/23 11:52 Pulse Ox 95 03/06/23 11:52 FiO2 Intake & Output 03/05/23 03/06/23 03/06/23 18:59 06:59 18:59 Weight 133.81 kg Other: Voiding Method Toilet Toilet Urinal Urinal - Labs CBC & Chem 7: 03/05/23 06:31 03/06/23 05:40 Labs: Microbiology - Last 24 Hours (Table) 03/04/23 11:55 Blood Culture - Preliminary Blood 03/04/23 12:10 Blood Culture - Preliminary Blood
[2023-03-07] MEDS: AMPICILLIN-SULBACTAM 3 GM in SODIUM CHLORIDE 0.9% 100 ML IVPB SCH ×3 (00:15→12:39)
[2023-03-07] MEDS: HEPARIN SODIUM,PORCINE 5,000 UNIT/ML 1 ML VIAL SQ SCH ×2 (00:16→08:54)
[2023-03-07] MEDS: SODIUM CHLORIDE 0.9% 1,000 ML IV SCH ×2 (02:42→08:55)
[2023-03-07 07:38] VITALS: BP 126/71; PULSE 62; TEMP 98.5
[2023-03-07] MEDS: METOPROLOL SUCCINATE (ER) 50 MG TAB.ER.24H PO SCH (08:54)
[2023-03-07] MEDS: VENLAFAXINE HCL ER 150 MG CAP PO SCH (08:55)
[2023-03-07] MEDS: PANTOPRAZOLE 40 MG TABLET PO SCH (08:55)
[2023-03-07] MEDS: lisinopriL 20 MG TAB PO SCH (08:55)
[2023-03-07] MEDS ORDERED: VANCOMYCIN TROUGH DUE 1 EACH MISC MISCELLANE ONE (10:00)
[2023-03-07 11:06] LABS: African American GFR (CKD) >90 (>60 ml/min/1.73 sqM); Anion Gap 4 mmol/L; Blood Urea Nitrogen 3 mg/dL (9-20); Carbon Dioxide 23 mmol/L (22-30); Chloride 111 mmol/L (98-107); Glucose 98 mg/dL (74-99); Non-African American GFR(CKD) >90 (>60 ml/min/1.73 sqM); Potassium 3.9 mmol/L (3.5-5.1); Sodium 138 mmol/L (137-145)
[2023-03-07] MEDS: VANCOMYCIN 2,000 MG in SODIUM CHLORIDE 0.9% 500 ML 500 ML IVPB SCH (11:47)
--- NOTE | 2023-03-07 14:09 | P.DS ---
Providers Date of admission: 03/04/23 11:34 Expected date of discharge: 03/07/23 Attending physician: Julien Mcfarlane MD Consults: 03/04/23 11:33 Consult Physician Routine Consulting Provider: Eleanor Mike Consult Reason/Comments: Cellulitis Do you want consulting provider notified?: Yes 03/04/23 11:52 Consult Physician Routine Consulting Provider: Roldan Faulkner Consult Reason/Comments: Right arm cellulitis Do you want consulting provider notified?: Yes Primary care physician: Parisa E.J. Noble Hospital Course: Patient is a 77-year-old male with history of hypertension, peptic ulcer disease, depression presenting with right arm erythema, pain, and edema. He was working with plants 1 week ago, and had a puncture wound on right anterior wrist. Decided to go to an urgent care was given Rocephin IM, 2 doses. However due to worsening edema, erythema, and pain is presenting to our facility for further care. In the ED, temperature was 97.6, pulse 68, respiratory 20, blood pressure 144/71, saturating at 94% on room air. WBC 8.6, hemoglobin 11.1, platelet 188, sodium 135, potassium slightly hemolyzed at 5.1, creatinine 0.69. Right arm Doppler was negative for DVT. Patient started on IV vancomycin, and IV Unasyn, as well as IV fluids. He is being admitted for cellulitis of right arm, failed outpatient antibiotic therapy. 03/05 Patient seen and examined at bedside. He reports improvement in his RUE swelling and erythema extending to the right elbow. Renal function within normal limits. Blood culture prelim negative. Orthopedic surgery recommended no surg ical intervention. 03/06 Patient was seen and examined. He reports improvement in his RUE and swelling. 03/07 Patient was seen and examined. He reports significant improvement in his right upper extremity swelling and erythema. This was discussed with Dr. Mike who recommends discharge home with doxycycline and Keflex for the next 10 days. He is advised to follow-up with his PCP within 1-2 days of discharge. He is advised to not work with heavy machinery or do any outdoor activities until your cellulitis has resolved. Pertinent studies include venous duplex. General: nontoxic, no distress, appears at stated age, morbidly obese Derm: warm, dry, right forearm erythema, edema, tenderness to palpation starting at right anterior wrist and tracking up to proximal elbow ( erythema has significantly improved since yesterday) Head: atraumatic, normocephalic, symmetric Eyes: EOMI, no lid lag, anicteric sclera ENT: Nose and ears atraumatic Cardiovascular: good distal perfusion in all 4 extremities Lungs: breathing comfortably, no accessory muscle use Ext: no gross muscle atrophy, muscle strength muscle strength 5 out of 5 in all 4 extremities, no contractures Psych: Alert, oriented, appropriate affect Discharge Diagnosis: Right arm cellulitis, failed outpatient antibiotic therapy Normocytic anemia Hypertension Peptic ulcer disease Depression Morbid obesity This complex discharge took 35 minutes to complete. Patient Condition at Discharge: Stable Plan - Discharge Summary Discharge Rx Participant: Yes New Discharge Prescriptions: New Doxycycline Hyclate 100 mg PO Q12H 10 Days #20 tab Cephalexin [Keflex] 500 mg PO Q6HR 10 Days #40 cap Continue Magnesium(Unknown Dose) 1 tab PO HS Vitamin B-12(Unknown Dose) 1 tab PO HS Benazepril HCl 40 mg PO HS Metoprolol Succinate [Toprol XL] 50 mg PO HS Multivitamins, Thera [Multivitamin (formulary)] 1 tab PO HS Omeprazole 20 mg PO HS Venlafaxine HCl [Effexor XR] 150 mg PO HS Discontinued Amoxic-Pot Clav 875-125Mg [Augmentin 875-125] 1 tab PO BID Doxycycline Hyclate 100 mg PO BID Discharge Medication List Benazepril HCl 40 mg PO HS 03/04/23 [History] Magnesium(Unknown Dose) 1 tab PO HS 03/04/23 [History] Metoprolol Succinate [Toprol XL] 50 mg PO HS 03/04/23 [History] Multivitamins, Thera [Multivitamin (formulary)] 1 tab PO HS 03/04/23 [History] Omeprazole 20 mg PO HS 03/04/23 [History] Venlafaxine HCl [Effexor XR] 150 mg PO HS 03/04/23 [History] Vitamin B-12(Unknown Dose) 1 tab PO HS 03/04/23 [History] Cephalexin [Keflex] 500 mg PO Q6HR 10 Days #40 cap 03/07/23 [Rx] Doxycycline Hyclate 100 mg PO Q12H 10 Days #20 tab 03/07/23 [Rx] Follow up Appointment(s)/Referral(s): Parisa Hernandez DO [Primary Care Provider] - 03/12/23 11:20 am (appointment is at the [place] office. ) Roldan Faulkner DO [Doctor of Osteopathic Medicine] - As Needed [facility], [NON-STAFF] - 1-2 Days Activity/Diet/Wound Care/Special Instructions: Diet: Cardiac Follow up with your PCP within 1-2 days of discharge. DO not work with heavy machinery or do any outdoor activities until your cellulitis has resolved. Discharge Disposition: HOME SELF-CARE
--- NOTE | 2023-03-07 14:24 | P.PN ---
Subjective Progress Note Date: 03/06/23 Principal diagnosis: Right upper extremity cellulitis Patient is a 77-year-old man with a past medical history significant for hypertension depression presented to the hospital with increasing swelling redness to the right upper extremity apparently about a week ago while gardening , subsequently presented to hospital with increasing swelling redness to the right upper extremity concerning for cellulitis on today's evaluation that is 03/06/2023, the patient remains to be afebrile, the patient is breathing comfortably on room air, the patient denies chest pain shortness of breath or cough no nausea no but no abdominal pain , patient swelling and redness of the right upper extremity has slightly decreased in intensity and no drainage Patient did have a hemoglobin of 10.6, white count of 8.6 creatinine 0.66 as of 03/05/2023 Objective - Vital Signs Vital signs: Vital Signs Temp 98.3 F 03/06/23 07:02 Pulse 65 03/06/23 07:02 Resp 18 03/06/23 07:02 BP 145/72 03/06/23 07:02 Pulse Ox 97 03/06/23 07:02 FiO2 Intake & Output 03/05/23 03/06/23 03/06/23 18:59 06:59 18:59 Weight 133.81 kg Other: Voiding Method Toilet Urinal - Exam GENERAL DESCRIPTION: An elderly male up in the chair in no distress RESPIRATORY SYSTEM: Unlabored breathing , decreased breath sounds at bases HEART: S1 S2 regular rate and rhythm , ABDOMEN: Soft , no tenderness EXTREMITIES: Right upper extremity swelling redness decreased in intensity - Labs CBC & Chem 7: 03/05/23 06:31 03/07/23 09:26 Labs: Microbiology - Last 24 Hours (Table) 03/04/23 11:55 Blood Culture - Preliminary Blood 03/04/23 12:10 Blood Culture - Preliminary Blood Assessment and Plan (1) Failure of outpatient treatment Status: Acute Code(s): Z78.9 - OTHER SPECIFIED HEALTH STATUS SNOMED Code(s): 322331759 (2) Right arm cellulitis Status: Acute Code(s): L03.113 - CELLULITIS OF RIGHT UPPER LIMB SNOMED Code(s): 903711094 Plan: 1patient with right upper extremity cellulitis in this patient with diffuse swelling and redness started with injury from a Tori in the garden more than 10 days ago before presentation to the hospital failing outpatient oral Keflex and doxycycline with a question of possible burden of disease 2-no evidence of any abscess and orthopedic recommending no surgical drainage 3Patient continued to show some clinical improvement and will continue vancomycin pharmacy to dose and Unasyn for another 24 hour before transitioning him oral antibiotic Time with Patient: Less than 30
--- NOTE | 2023-03-07 14:26 | P.PN ---
Subjective Progress Note Date: 03/07/23 Principal diagnosis: Right upper extremity cellulitis Patient is a 77-year-old man with a past medical history significant for hypertension depression presented to the hospital with increasing swelling redness to the right upper extremity apparently about a week ago while gardening , subsequently presented to hospital with increasing swelling redness to the right upper extremity concerning for cellulitis on today's evaluation that is 03/07/2023, the patient denies any fever or any chills, the patient is breathing comfortably on room air, the patient denies chest pain shortness of breath or cough no nausea no and no abdominal pain , patient swelling and redness of the right upper extremity has significantly decreased in intensity and no drainage Patient did have a hemoglobin of 10.6, white count of 8.6 as of 03/05/2023, patient did have a creatinine 0.66 today blood culture negative Objective - Vital Signs Vital signs: Vital Signs Temp 98.5 F 03/07/23 07:05 Pulse 62 03/07/23 07:05 Resp 18 03/07/23 07:05 BP 126/71 03/07/23 07:05 Pulse Ox 97 03/07/23 07:05 FiO2 Intake & Output 03/06/23 03/07/23 03/07/23 18:59 06:59 18:59 Intake Total 100 Balance 100 Intake: Intake, IV Titration 100 Amount Ampicillin-Sulbactam 3 gm 100 In Sodium Chloride 0.9% 100 ml @ 200 mls/hr IVPB Q6HR [facility] Rx#:[id number] Other: Voiding Method Toilet Toilet Urinal Urinal # Voids 1 - Exam GENERAL DESCRIPTION: An elderly male up in the chair in no distress RESPIRATORY SYSTEM: Unlabored breathing , decreased breath sounds at bases HEART: S1 S2 regular rate and rhythm , ABDOMEN: Soft , no tenderness EXTREMITIES: Right upper extremity swelling redness has significantly decreased in intensity, no wound or any drainage - Labs CBC & Chem 7: 03/05/23 06:31 03/07/23 09:26 Labs: Microbiology - Last 24 Hours (Table) 03/04/23 11:55 Blood Culture - Preliminary Blood 03/04/23 12:10 Blood Culture - Preliminary Blood Assessment and Plan (1) Failure of outpatient treatment Status: Acute Code(s): Z78.9 - OTHER SPECIFIED HEALTH STATUS SNOMED Code(s): 705186766 (2) Right arm cellulitis Status: Acute Code(s): L03.113 - CELLULITIS OF RIGHT UPPER LIMB SNOMED Code(s): 622063183 Plan: 1patient with right upper extremity cellulitis in this patient with diffuse swelling and redness started with injury from a Tori in the garden more than 10 days ago before presentation to the hospital failing outpatient oral Keflex and doxycycline with a question of possible burden of disease 2-no evidence of any abscess and orthopedic recommending no surgical drainage 3Patient has shown overall clinical improvement we will recommend finishing therapy with oral Keflex and doxycycline also advised compression dressing to the right upper extremity to keep the swelling down questions Answered Time with Patient: Less than 30
[2023-03-07] MEDS ORDERED: VANCOMYCIN 2,000 MG in SODIUM CHLORIDE 0.9% 500 ML 500 ML IVPB SCH (16:00)
== END 2023-03-07 14:02 | disposition home or self-care (01) ==
LOC: EC 10:12 → INTOOBSV 11:34 → 5NMEDONC 11:34 → UNDODISIN 03-07 14:02
PROVIDERS: ADMIT Student in an Organized Health Care Education/Training Program; ATTEND Student in an Organized Health Care Education/Training Program
DX: L03.115 Cellulitis of right lower limb (principal); Z68.41 Body mass index [BMI] 40.0-44.9, adult; D64.9 Anemia, unspecified; I10 Essential (primary) hypertension; F32.A Depression, unspecified; E66.01 Morbid (severe) obesity due to excess calories; Z87.11 Personal history of peptic ulcer disease; Z79.899 Other long term (current) drug therapy
CPT/HCPCS: 96361; 96366 ×5; 96372 ×5; 96365; 96367; 99285; 36415; 80053; 80048 ×2; 82565 ×2; 83605; 85025 ×2; 80202; 85610; 85730; 87040; 93971; G0378 ×4; J3370 ×3; J1644 ×4; J0295 ×4

== ENCOUNTER 2023-11-22 19:06 | Inpatient (IN) | payer MEDICARE ==
--- NOTE | 2023-11-22 20:00 | ED ---
SOB HPI - General Chief Complaint: Shortness of Breath Stated Complaint: SOB Time Seen by Provider: 11/22/23 19:23 Source: patient, EMS, RN notes reviewed, old records reviewed Mode of arrival: EMS Limitations: physical limitation - History of Present Illness Initial Comments: This is a 78-year-old male to the ER for evaluation of significant weakness. Patient has persistent weakness here in the emergency room with recent diagnosis of coronavirus patient is 5 to 6 days with positive diagnosis and still feeling weak diminished appetite for the last 2 days. MD Complaint: shortness of breath, cough -: days(s) (5) Severity scale (1-10): 7 Consistency: constant Improves With: nothing Worsens With: nothing Context: recent URI, recent illness Associated Symptoms: fever, cough, sputum production Treatments Prior to Arrival: none - Related Data Home Medications Medication Instructions Recorded Confirmed Metoprolol Succinate [Toprol XL] 50 mg PO HS 03/04/23 11/23/23 Omeprazole 20 mg PO HS 03/04/23 11/23/23 Benazepril [Lotensin] 10 mg PO HS 11/23/23 11/23/23 Primidone [Mysoline] 250 mg PO HS 11/23/23 11/23/23 Venlafaxine HCl [Effexor XR] 150 mg PO HS 11/23/23 11/23/23 Previous Rx's Medication Instructions Recorded Cefdinir 300 mg PO Q12HR #4 cap 11/25/23 dexAMETHasone ORAL [Hexadrol] 6 mg PO DAILY #18 tab 11/25/23 Allergies Allergy/AdvReac Type Severity Reaction Status Date / Time No Known Allergies Allergy Verified 11/23/23 08:39 Review of Systems ROS Statement: Those systems with pertinent positive or pertinent negative responses have been documented in the HPI. ROS Other: All systems not noted in ROS Statement are negative. Past Medical History Past Medical History: Hypertension Additional Past Medical History / Comment(s): apendicitis History of Any Multi-Drug Resistant Organisms: None Reported Past Surgical History: Bariatric Surgery, Cholecystectomy Additional Past Surgical History / Comment(s): gastric bypass, Past Anesthesia/Blood Transfusion Reactions: No Reported Reaction Past Psychological History: Depression Smoking Status: Never smoker Past Alcohol Use History: None Reported Past Drug Use History: None Reported General Exam Limitations: physical limitation General appearance: alert, in no apparent distress, anxious, in distress Head exam: Present: atraumatic, normocephalic, normal inspection Eye exam: Present: normal appearance, PERRL, EOMI. Absent: scleral icterus, conjunctival injection, periorbital swelling ENT exam: Present: normal exam, mucous membranes moist Neck exam: Present: normal inspection. Absent: tenderness, meningismus, lymphadenopathy Respiratory exam: Present: normal lung sounds bilaterally. Absent: respiratory distress, wheezes, rales, rhonchi, stridor Cardiovascular Exam: Present: regular rate, normal rhythm, normal heart sounds. Absent: systolic murmur, diastolic murmur, rubs, gallop, clicks GI/Abdominal exam: Present: soft, normal bowel sounds. Absent: distended, tenderness, guarding, rebound, rigid Extremities exam: Present: normal inspection, full ROM, normal capillary refill. Absent: tenderness, pedal edema, joint swelling, calf tenderness Back exam: Present: normal inspection Neurological exam: Present: alert, oriented X3, CN II-XII intact Psychiatric exam: Present: normal affect, normal mood Skin exam: Present: warm, dry, intact, normal color. Absent: rash Course Vital Signs 11/22/23 11/22/23 11/23/23 19:15 22:01 00:29 Pulse Rate 75 73 71 Respiratory 24 22 20 Rate Blood Pressure 144/82 154/80 158/86 O2 Sat by Pulse 98 97 97 Oximetry 11/23/23 11/23/23 11/23/23 01:47 02:58 08:00 Pulse Rate 59 L 64 Respiratory 20 16 18 Rate Blood Pressure 132/76 140/72 O2 Sat by Pulse 97 98 Oximetry 11/23/23 11:05 Pulse Rate 71 Respiratory 24 Rate Blood Pressure 124/80 O2 Sat by Pulse 93 L Oximetry - Reevaluation(s) Reevaluation #1: 11/22/23 23:14 Medical record is reviewed Reevaluation #2: 11/22/23 23:14 Patient has no change in symptoms here in the ER Reevaluation #3: 11/22/23 23:14 Patient informed of results and questions answered Reevaluation #4: Was pt. sent in by a medical professional or institution (, PA, CORPORATE LIBRARIAN, urgent care, hospital, or retirement...) When possible be specific @ -no Did you speak to anyone other than the patient for history (EMS, parent, family, police, friend...)? What history was obtained from this source @ -no Did you review nursing and triage notes (agree or disagree)? Why? @ -agree Are old charts reviewed (outside hosp., previous admission, EMS record, old EKG, old radiological studies, urgent care reports/EKG's, retirement records)? Report findings @ -yes Differential Diagnosis (chest pain, altered mental status, abdominal pain women, abdominal pain men, vaginal bleeding, weakness, fever, dyspnea, syncope, headache, dizziness, GI bleed, back pain, seizure, CVA, palpatations, mental health, musculoskeletal)? @ -prior EKG interpreted by me (3pts min.). @ -yes X-rays interpreted by me (1pt min.). @ -yes negative for acute disease CT interpreted by me (1pt min.). @ -Yes negative for acute disease or PE U/S interpreted by me (1pt. min.). @ -no What testing was considered but not performed or refused? (CT, X-rays, U/S, labs)? Why? @ -none What meds were considered but not given or refused? Why? @ -none Did you discuss the management of the patient with other professionals (professionals i.e. , PA, CORPORATE LIBRARIAN, lab, RT, psych nurse, social media campaign manager, senior drupal developer, teacher, cra officer, lead case manager)? Give summary @ -no Was smoking cessation discussed for >3mins.? @ -no Was critical care preformed (if so, how long)? @ -no Were there social determinants of health that impacted care today? How? (Homelessness, low income, unemployed, alcoholism, drug addiction, transportation, low edu. Level, literacy, decrease access to med. care, nursing home, rehab)? @ -none Was there de-escalation of care discussed even if they declined (Discuss DNR or withdrawal of care, Hospice)? DNR status @ -no What co-morbidities impacted this encounter? (DM, HTN, Smoking, COPD, CAD, Cancer, CVA, ARF, Chemo, Hep., AIDS, mental health diagnosis, sleep apnea, morbid obesity)? @ -none Was patient admitted / discharged? Hospital course, mention meds given and route, prescriptions, significant lab abnormalities, going to OR and other pertinent info. @ - 78-year-old male with failure to thrive and recent diagnosis of coronavirus. Admitted Undiagnosed new problem with uncertain prognosis? @ -no Drug Therapy requiring intensive monitoring for toxicity (Heparin, Nitro, Insulin, Cardizem)? @ -no Were any procedures done? @ -no Diagnosis/symptom? @ -Chest pain weakness and coronavirus with shortness of breath Acute, or Chronic, or Acute on Chronic? @ -Acute Uncomplicated (without systemic symptoms) or Complicated (systemic symptoms)? @ -Complicated Side effects of treatment? @ -no Exacerbation, Progression, or Severe Exacerbation? @ -exacerbation Poses a threat to life or bodily function? How? (Chest pain, USA, NV, pneumonia, PE, COPD, DKA, ARF, appy, cholecystitis, CVA, Diverticulitis, Homicidal, Suicidal, threat to staff... and all critical care pts) @ -yes with significant extremes of age Reevaluation #5: Differential Weakness: Hypoglycemia, shock, sepsis, hyponatremia, anemia, infection, NV, ETOH, adverse medicine reaction, overdose, stroke, this is not meant to be an all-inclusive list. Medical Decision Making - Medical Decision Making 78-year-old male with failure to thrive and recent diagnosis of coronavirus. - Lab Data Result diagrams: 11/25/23 12:30 11/25/23 05:27 Lab Results 11/22/23 11/22/23 11/22/23 Range/Units 20:19 20:19 20:19 WBC 11.7 H (3.8-10.6) k/uL RBC 3.92 L (4.30-5.90) m/uL Hgb 9.5 L (13.0-17.5) gm/dL Hct 31.5 L (39.0-53.0) % MCV 80.5 (80.0-100.0) fL MCH 24.3 L (25.0-35.0) pg MCHC 30.2 L (31.0-37.0) g/dL RDW 16.7 H (11.5-15.5) % Plt Count 161 (150-450) k/uL MPV 10.8 Immature Gran % (Auto) % Absolute Nucleated RBC % Neutrophils % 89 % Lymphocytes % 5 % Monocytes % 4 % Eosinophils % 1 % Basophils % 0 % Immature Gran # (0.00-0.04) X 10*3/uL Neutrophils # 10.4 H (1.3-7.7) k/uL Lymphocytes # 0.6 L (1.0-4.8) k/uL Monocytes # 0.5 (0-1.0) k/uL Eosinophils # 0.1 (0-0.7) k/uL Basophils # 0.0 (0-0.2) k/uL NRBC/100 WBC Diff (0.00-0.01) X 10*3/uL Hypochromasia Moderate Anisocytosis Slight PT 11.6 (10.0-12.5) sec INR 1.1 (<1.2) APTT 25.1 (22.0-30.0) sec D-Dimer 1.77 H (<0.60) mg/L FEU Sodium 132 L (137-145) mmol/L Potassium 3.6 (3.5-5.1) mmol/L Chloride 103 (98-107) mmol/L Carbon Dioxide 26 (22-30) mmol/L Anion Gap 3 mmol/L BUN 17 (9-20) mg/dL Creatinine 0.80 (0.66-1.25) mg/dL Est GFR (CKD-EPI)AfAm >90 (>60 ml/min/1.73 sqM) Est GFR (CKD-EPI)NonAf 86 (>60 ml/min/1.73 sqM) Glucose 99 (74-99) mg/dL Plasma Lactic Acid Randall (0.7-2.0) mmol/L Calcium 8.2 L (8.4-10.2) mg/dL Phosphorus (2.5-4.5) mg/dL Magnesium 1.6 (1.6-2.3) mg/dL Total Bilirubin 1.2 (0.2-1.3) mg/dL AST 28 (17-59) U/L ALT 13 (4-49) U/L Alkaline Phosphatase 94 (38-126) U/L Troponin I (0.000-0.034) ng/mL NT-Pro-B Natriuret Pep 3500 pg/mL Total Protein 5.8 L (6.3-8.2) g/dL Albumin 2.7 L (3.5-5.0) g/dL Procalcitonin (0.02-0.09) ng/mL Influenza Type A (PCR) (Not Detectd) Influenza Type B (PCR) (Not Detectd) RSV (PCR) (Not Detectd) SARS-CoV-2 (PCR) (Not Detectd) 11/22/23 11/22/23 11/23/23 Range/Units 20:19 20:19 00:29 WBC (3.8-10.6) k/uL RBC (4.30-5.90) m/uL Hgb (13.0-17.5) gm/dL Hct (39.0-53.0) % MCV (80.0-100.0) fL MCH (25.0-35.0) pg MCHC (31.0-37.0) g/dL RDW (11.5-15.5) % Plt Count (150-450) k/uL MPV Immature Gran % (Auto) % Absolute Nucleated RBC % Neutrophils % % Lymphocytes % % Monocytes % % Eosinophils % % Basophils % % Immature Gran # (0.00-0.04) X 10*3/uL Neutrophils # (1.3-7.7) k/uL Lymphocytes # (1.0-4.8) k/uL Monocytes # (0-1.0) k/uL Eosinophils # (0-0.7) k/uL Basophils # (0-0.2) k/uL NRBC/100 WBC Diff (0.00-0.01) X 10*3/uL Hypochromasia Anisocytosis PT (10.0-12.5) sec INR (<1.2) APTT (22.0-30.0) sec D-Dimer (<0.60) mg/L FEU Sodium (137-145) mmol/L Potassium (3.5-5.1) mmol/L Chloride (98-107) mmol/L Carbon Dioxide (22-30) mmol/L Anion Gap mmol/L BUN (9-20) mg/dL Creatinine (0.66-1.25) mg/dL Est GFR (CKD-EPI)AfAm (>60 ml/min/1.73 sqM) Est GFR (CKD-EPI)NonAf (>60 ml/min/1.73 sqM) Glucose (74-99) mg/dL Plasma Lactic Acid Randall 1.0 (0.7-2.0) mmol/L Calcium (8.4-10.2) mg/dL Phosphorus (2.5-4.5) mg/dL Magnesium (1.6-2.3) mg/dL Total Bilirubin (0.2-1.3) mg/dL AST (17-59) U/L ALT (4-49) U/L Alkaline Phosphatase (38-126) U/L Troponin I 0.023 (0.000-0.034) ng/mL NT-Pro-B Natriuret Pep pg/mL Total Protein (6.3-8.2) g/dL Albumin (3.5-5.0) g/dL Procalcitonin (0.02-0.09) ng/mL Influenza Type A (PCR) Not Detected (Not Detectd) Influenza Type B (PCR) Not Detected (Not Detectd) RSV (PCR) Not Detected (Not Detectd) SARS-CoV-2 (PCR) Not Detected (Not Detectd) 11/23/23 11/23/23 11/23/23 Range/Units 07:47 07:47 07:47 WBC 13.7 H (3.8-10.6) k/uL RBC 4.49 (4.30-5.90) m/uL Hgb 10.6 L (13.0-17.5) gm/dL Hct 37.8 L (39.0-53.0) % MCV 84.3 (80.0-100.0) fL MCH 23.6 L (25.0-35.0) pg MCHC 28.0 L (31.0-37.0) g/dL RDW 16.8 H (11.5-15.5) % Plt Count 153 (150-450) k/uL MPV 8.8 Immature Gran % (Auto) % Absolute Nucleated RBC % Neutrophils % 92 % Lymphocytes % 3 % Monocytes % 4 % Eosinophils % 0 % Basophils % 0 % Immature Gran # (0.00-0.04) X 10*3/uL Neutrophils # 12.6 H (1.3-7.7) k/uL Lymphocytes # 0.5 L (1.0-4.8) k/uL Monocytes # 0.5 (0-1.0) k/uL Eosinophils # 0.0 (0-0.7) k/uL Basophils # 0.0 (0-0.2) k/uL NRBC/100 WBC Diff (0.00-0.01) X 10*3/uL Hypochromasia Marked Anisocytosis Slight PT (10.0-12.5) sec INR (<1.2) APTT (22.0-30.0) sec D-Dimer (<0.60) mg/L FEU Sodium 136 L (137-145) mmol/L Potassium 4.0 (3.5-5.1) mmol/L Chloride 106 (98-107) mmol/L Carbon Dioxide 25 (22-30) mmol/L Anion Gap 5 mmol/L BUN 16 (9-20) mg/dL Creatinine 0.73 (0.66-1.25) mg/dL Est GFR (CKD-EPI)AfAm >90 (>60 ml/min/1.73 sqM) Est GFR (CKD-EPI)NonAf 89 (>60 ml/min/1.73 sqM) Glucose 106 H (74-99) mg/dL Plasma Lactic Acid Randall (0.7-2.0) mmol/L Calcium 8.4 (8.4-10.2) mg/dL Phosphorus 3.6 (2.5-4.5) mg/dL Magnesium 1.9 (1.6-2.3) mg/dL Total Bilirubin 1.1 (0.2-1.3) mg/dL AST 30 (17-59) U/L ALT 14 (4-49) U/L Alkaline Phosphatase 101 (38-126) U/L Troponin I (0.000-0.034) ng/mL NT-Pro-B Natriuret Pep pg/mL Total Protein 6.2 L (6.3-8.2) g/dL Albumin 2.9 L (3.5-5.0) g/dL Procalcitonin 0.31 H (0.02-0.09) ng/mL Influenza Type A (PCR) (Not Detectd) Influenza Type B (PCR) (Not Detectd) RSV (PCR) (Not Detectd) SARS-CoV-2 (PCR) (Not Detectd) 11/24/23 11/24/23 11/25/23 Range/Units 05:05 06:46 05:27 WBC 13.74 H (3.8-10.6) k/uL RBC 3.94 L (4.30-5.90) m/uL Hgb 9.7 L (13.0-17.5) gm/dL Hct 32.3 L (39.0-53.0) % MCV 82.0 (80.0-100.0) fL MCH 24.6 L (25.0-35.0) pg MCHC 30.0 L (31.0-37.0) g/dL RDW 17.0 H (11.5-15.5) % Plt Count 169 (150-450) k/uL MPV 13.9 H Immature Gran % (Auto) 1.10 % Absolute Nucleated RBC 0 % Neutrophils % 89.3 % Lymphocytes % 4.5 % Monocytes % 4.9 % Eosinophils % 0 % Basophils % 0.2 % Immature Gran # 0.15 H (0.00-0.04) X 10*3/uL Neutrophils # 12.26 H (1.3-7.7) k/uL Lymphocytes # 0.62 L (1.0-4.8) k/uL Monocytes # 0.68 (0-1.0) k/uL Eosinophils # 0 L (0-0.7) k/uL Basophils # 0.03 (0-0.2) k/uL NRBC/100 WBC Diff 0 (0.00-0.01) X 10*3/uL Hypochromasia Anisocytosis PT (10.0-12.5) sec INR (<1.2) APTT (22.0-30.0) sec D-Dimer (<0.60) mg/L FEU Sodium 137 137 (137-145) mmol/L Potassium 5.1 3.7 (3.5-5.1) mmol/L Chloride 109 H 108 H (98-107) mmol/L Carbon Dioxide 23 24 (22-30) mmol/L Anion Gap 5 5 mmol/L BUN 25 H 29 H (9-20) mg/dL Creatinine 0.71 0.80 (0.66-1.25) mg/dL Est GFR (CKD-EPI)AfAm >90 >90 (>60 ml/min/1.73 sqM) Est GFR (CKD-EPI)NonAf >90 86 (>60 ml/min/1.73 sqM) Glucose 125 H 117 H (74-99) mg/dL Plasma Lactic Acid Randall (0.7-2.0) mmol/L Calcium 8.8 8.8 (8.4-10.2) mg/dL Phosphorus (2.5-4.5) mg/dL Magnesium 2.0 (1.6-2.3) mg/dL Total Bilirubin (0.2-1.3) mg/dL AST (17-59) U/L ALT (4-49) U/L Alkaline Phosphatase (38-126) U/L Troponin I (0.000-0.034) ng/mL NT-Pro-B Natriuret Pep pg/mL Total Protein (6.3-8.2) g/dL Albumin (3.5-5.0) g/dL Procalcitonin (0.02-0.09) ng/mL Influenza Type A (PCR) (Not Detectd) Influenza Type B (PCR) (Not Detectd) RSV (PCR) (Not Detectd) SARS-CoV-2 (PCR) (Not Detectd) - EKG Data -: EKG Interpreted by Me (EKG is sinus 74 ID 188 QRS 105 QTc 407) - Radiology Data Radiology results: report reviewed (Chest x-ray CTA chest negative for acute disease), image reviewed Disposition Clinical Impression: Failure of outpatient treatment, Coronavirus infection, Weakness Disposition: ADMITTED IP TO THIS HOSP Condition: Stable Is patient prescribed a controlled substance at d/c from ED?: No Time of Disposition: 23:00
[2023-11-22 20:40] LABS: Anisocytosis Slight; Basophils % (A) 0 %; Eosinophils # (A) 0.1 k/uL (0-0.7); Eosinophils % (A) 1 %; HCT 31.5 % (39.0-53.0); HGB 9.5 gm/dL (13.0-17.5); Hypochromasia Moderate; Lymphocytes # (A) 0.6 k/uL (1.0-4.8); Lymphocytes % (A) 5 %; MCH 24.3 pg (25.0-35.0); MCHC 30.2 g/dL (31.0-37.0); MCV 80.5 fL (80.0-100.0); Mean Platelet Volume 10.8; Monocytes # (A) 0.5 k/uL (0-1.0); Monocytes % (A) 4 %; Neutrophils # (A) 10.4 k/uL (1.3-7.7); Neutrophils % (A) 89 %; Platelet Count 161 k/uL (150-450); RBC 3.92 m/uL (4.30-5.90); RDW 16.7 % (11.5-15.5); WBC 11.7 k/uL (3.8-10.6)
[2023-11-22 20:55] LABS: INR 1.1 (<1.2); Partial Thromboplastin Time 25.1 sec (22.0-30.0); Prothrombin Time 11.6 sec (10.0-12.5)
[2023-11-22 21:06] LABS: ALT 13 U/L (4-49); AST 28 U/L (17-59); African American GFR (CKD) >90 (>60 ml/min/1.73 sqM); Albumin 2.7 g/dL (3.5-5.0); Alkaline Phosphatase 94 U/L (38-126); Anion Gap 3 mmol/L; Blood Urea Nitrogen 17 mg/dL (9-20); Calcium 8.2 mg/dL (8.4-10.2); Carbon Dioxide 26 mmol/L (22-30); Chloride 103 mmol/L (98-107); Glucose 99 mg/dL (74-99); Magnesium 1.6 mg/dL (1.6-2.3); Non-African American GFR(CKD) 86 (>60 ml/min/1.73 sqM); Potassium 3.6 mmol/L (3.5-5.1); Sodium 132 mmol/L (137-145); Total Bilirubin 1.2 mg/dL (0.2-1.3); Total Protein 5.8 g/dL (6.3-8.2)
[2023-11-22 21:13] LABS: NT-Pro-B-Type Natriuretic Pept 3500 pg/mL
--- NOTE | 2023-11-22 21:18 | XR ---
EXAMINATION TYPE: XR chest 1V portable DATE OF EXAM: 11/22/2023 9:03 PM CLINICAL INDICATION:Male, 78 years old with history of sob; COMPARISON: None TECHNIQUE: XR chest 1V portable Frontal view of the chest. FINDINGS: Lungs/Pleura: There is no evidence of pleural effusion, focal consolidation, or pneumothorax. Pulmonary vascularity: Pulmonary vascular congestion. Heart/mediastinum: Cardiomediastinal silhouette is enlarged and stable. Musculoskeletal: No acute osseous pathology. IMPRESSION: Cardiomegaly and mild pulmonary vascular congestion. Correlate with BNP for congestive heart failure.
[2023-11-22] MEDS ORDERED: ACETAMINOPHEN TAB 325 MG TAB PO PRN (23:25)
[2023-11-22] MEDS ORDERED: NALOXONE 0.4 MG/ML 1 ML VIAL IV PRN (23:25)
[2023-11-22] MEDS ORDERED: IBUPROFEN 400 MG TAB PO PRN (23:25)
[2023-11-22] MEDS ORDERED: ONDANSETRON 4 MG/2 ML VIAL IVP PRN (23:25)
[2023-11-22] MEDS ORDERED: MORPHINE SULFATE 4 MG/ML SYRINGE IV PRN (23:25)
--- NOTE | 2023-11-22 23:54 | CT ---
EXAM: CT Angiography Chest With Intravenous Contrast CLINICAL HISTORY: ITS.REASON CT Reason: pe TECHNIQUE: Axial computed tomographic angiography images of the chest with intravenous contrast. CTDI is 17.8 mGy and DLP is 801.9 mGy-cm. This CT exam was performed using one or more of the following dose reduction techniques: automated exposure control, adjustment of the mA and/or kV according to patient size, and/or use of iterative reconstruction technique. MIP reconstructed images were created and reviewed. COMPARISON: No relevant prior studies available. FINDINGS: Pulmonary arteries: Unremarkable. No acute pulmonary embolism. Aorta: Atherosclerotic changes of the aorta. No thoracic aortic aneurysm. Lungs: Dependent airspace consolidations, LEFT or the RIGHT, consistent with multilobar pneumonia. Hepatic steatosis. Pleural space: Unremarkable. No significant effusion. No pneumothorax. Heart: Unremarkable. No cardiomegaly. No significant pericardial effusion. No evidence of RV dysfunction. Bones/joints: Degenerative changes of the spine. No acute fracture. No dislocation. Soft tissues: Unremarkable. Lymph nodes: Unremarkable. No enlarged lymph nodes. Liver: Hepatic steatosis. IMPRESSION: No acute pulmonary embolism.
[2023-11-23] MEDS: DEXAMETHASONE SOD PHOSPHATE 10 MG/ML 1 ML VIAL IVP STA (00:34)
[2023-11-23] MEDS: SODIUM CHLORIDE 0.9% 1,000 ML IV STA (00:35)
[2023-11-23] MEDS: SODIUM CHLORIDE 0.9% 1,000 ML IV SCH ×2 (00:36→01:12)
[2023-11-23] MEDS: PANTOPRAZOLE 40 MG/10 ML VIAL IV SCH (08:07)
[2023-11-23 08:25] LABS: Anisocytosis Slight; Basophils % (A) 0 %; Eosinophils % (A) 0 %; HCT 37.8 % (39.0-53.0); HGB 10.6 gm/dL (13.0-17.5); Hypochromasia Marked; Lymphocytes # (A) 0.5 k/uL (1.0-4.8); Lymphocytes % (A) 3 %; MCH 23.6 pg (25.0-35.0); MCV 84.3 fL (80.0-100.0); Mean Platelet Volume 8.8; Monocytes # (A) 0.5 k/uL (0-1.0); Monocytes % (A) 4 %; Neutrophils # (A) 12.6 k/uL (1.3-7.7); Neutrophils % (A) 92 %; Platelet Count 153 k/uL (150-450); RBC 4.49 m/uL (4.30-5.90); RDW 16.8 % (11.5-15.5); WBC 13.7 k/uL (3.8-10.6)
[2023-11-23 08:36] LABS: ALT 14 U/L (4-49); AST 30 U/L (17-59); African American GFR (CKD) >90 (>60 ml/min/1.73 sqM); Albumin 2.9 g/dL (3.5-5.0); Alkaline Phosphatase 101 U/L (38-126); Anion Gap 5 mmol/L; Blood Urea Nitrogen 16 mg/dL (9-20); Calcium 8.4 mg/dL (8.4-10.2); Carbon Dioxide 25 mmol/L (22-30); Chloride 106 mmol/L (98-107); Glucose 106 mg/dL (74-99); Magnesium 1.9 mg/dL (1.6-2.3); Non-African American GFR(CKD) 89 (>60 ml/min/1.73 sqM); Phosphorus 3.6 mg/dL (2.5-4.5); Sodium 136 mmol/L (137-145); Total Bilirubin 1.1 mg/dL (0.2-1.3); Total Protein 6.2 g/dL (6.3-8.2)
[2023-11-23] MEDS: dexAMETHasone 2 MG TAB PO SCH (11:01)
--- NOTE | 2023-11-23 12:46 | P.HPIM ---
History of Present Illness H&P Date: 11/23/23 Patient is a 78-year-old male with history of hypertension, tremor, peptic ulcer disease, depression presenting with worsening shortness of breath and hypoxia. Patient claims that he was in [place] for 2 weeks, recently traveled 1 week ago. Started noticing increased cough, fever, some shortness of breath. He then presented to an outpatient urgent care, was diagnosed with COVID-19. He was started on Paxlovid. However, shortness of breath persisted. Fevers have resolved. He was noted to be hypoxic up to 87% on room air and decided to come to the hospital. Currently denies any chest pain, abdominal pain, nausea, vomiting, urinary or bowel complaints. He denies any chills, no other recent sick contacts or travel history. He does have a history of lower extremity edema, which she claims has been the same, denies any orthopnea or PND. He denies any exertional shortness of breath. He denies any alcohol, smoking, or illicit drug use. In the ED, vital signs within normal limits except saturating 97% on 4 L. Currently on 93% at room air WBC 11.7, hemoglobin 9.5 slightly below baseline, D-dimer 1.77, sodium 132, creatinine 0.80, troponin 0.023, proBNP 3500, respir atory viral panel negative. He was given 10 mg of IV dexamethasone. He was also started on IV fluids. CTA chest showed dependent airspace consolidations on the left and right showed multilobar pneumonia, no evidence of PE. EKG independently interpreted, shows sinus rhythm. Chest x-ray independently interpreted, showed some interstitial opacities. Patient being admitted for acute hypoxic respiratory failure in the setting of recent COVID-19 infection. Pulmonology also consulted. Patient originally admitted to different hospitalist group on 11/22/2023 at 2325. [facility] physicians notified at 0900 on 11/23/2023. Pertinent positives and negatives as discussed in HPI, a complete review of s ystems was performed and all other systems are negative. Patient seen and examined at bedside. Vital signs reviewed General: nontoxic, no distress, appears at stated age, morbidly obese Derm: warm, dry Head: atraumatic, normocephalic, symmetric Eyes: EOMI, no lid lag, anicteric sclera, pupils equal round reactive to light ENT: Nose and ears atraumatic Neck: No thyromegaly, supple Mouth: no lip lesion, mucus membranes moist Cardiovascular: S1S2 reg, no murmur, 2+ pitting edema Lungs: Bibasilar rales, no wheeze, no accessory muscle use, supplemental oxygen Abdominal: soft, nontender to palpation, no guarding, no appreciable organomegaly Ext: no gross muscle atrophy, muscle strength muscle strength 5 out of 5 in all 4 extremities, no contractures Neuro: CN II-XII grossly intact, right arm resting tremor Psych: Alert, oriented, appropriate affect Assessment/Plan: Active: Acute hypoxic respiratory failure Recent diagnosis of COVID-19 pneumonia Multifocal pneumonia noted on CT Elevated D-dimer, PE ruled out Lower extremity edema Leukocytosis -Hypoxic respiratory failure likely in the setting of acute COVID-19 pneumonia, although respiratory viral panel negative at our facility -Started on oral dexamethasone 6 mg daily, completed 10-day course -Wean oxygen -Patient claims that lower extremity edema has been present for a long time, history is more consistent with acute illness, if unable to wean oxygen, can consider echocardiogram and diuretics -Pulmonology also consulted Repeat CBC tomorrow Chronic normocytic anemia, at baseline -Outpatient workup Hyponatremia, improved -Repeat BMP tomorrow Chronic: Depression Hypertension Peptic ulcer disease Tremor The patient is admitted with an anticipated less than 2 midnight stay as observation status for evaluation of acute hypoxic respiratory failure. Surrogate decision-maker: Spouse CODE STATUS: Full code DVT prophylaxis: Lovenox Anticipated discharge date: Pending clinical course Anticipated discharge place: Pending clinical course A total of 55 minutes was spent on the care of this complex patient more than 50% of the time was spent in counseling and care coordination. Past Medical History Past Medical History: Hypertension Additional Past Medical History / Comment(s): apendicitis History of Any Multi-Drug Resistant Organisms: None Reported Past Surgical History: Bariatric Surgery, Cholecystectomy Additional Past Surgical History / Comment(s): gastric bypass, Past Anesthesia/Blood Transfusion Reactions: No Reported Reaction Past Psychological History: Depression Smoking Status: Never smoker Past Alcohol Use History: None Reported Past Drug Use History: None Reported Medications and Allergies Home Medications Medication Instructions Recorded Confirmed Type Metoprolol Succinate [Toprol XL] 50 mg PO HS 03/04/23 11/23/23 History Omeprazole 20 mg PO HS 03/04/23 11/23/23 History Benazepril [Lotensin] 10 mg PO HS 11/23/23 11/23/23 History Nirmatrelvir/Ritonavir [Paxlovid 3 tab PO BID 11/23/23 11/23/23 History 150-100 mg Dose Pack] Primidone [Mysoline] 250 mg PO HS 11/23/23 11/23/23 History Venlafaxine HCl [Effexor XR] 150 mg PO HS 11/23/23 11/23/23 History Allergies Allergy/AdvReac Type Severity Reaction Status Date / Time No Known Allergies Allergy Verified 11/23/23 08:39 Physical Exam Vitals: Vital Signs Pulse Resp BP Pulse Ox 11/23/23 11:05 71 24 124/80 93 L 11/23/23 08:00 64 18 140/72 98 11/23/23 02:58 59 L 16 132/76 97 11/23/23 01:47 20 11/23/23 00:29 71 20 158/86 97 11/22/23 22:01 73 22 154/80 97 11/22/23 19:15 75 24 144/82 98 Intake and Output 11/22/23 11/23/23 11/23/23 22:59 06:59 14:59 Other: Weight 131.542 kg Results CBC & Chem 7: 11/23/23 07:47 11/23/23 07:47 Labs: Abnormal Lab Results - Last 24 Hours (Table) 11/22/23 11/22/23 11/22/23 Range/Units 20:19 20:19 20:19 WBC 11.7 H (3.8-10.6) k/uL RBC 3.92 L (4.30-5.90) m/uL Hgb 9.5 L (13.0-17.5) gm/dL Hct 31.5 L (39.0-53.0) % MCH 24.3 L (25.0-35.0) pg MCHC 30.2 L (31.0-37.0) g/dL RDW 16.7 H (11.5-15.5) % Neutrophils # 10.4 H (1.3-7.7) k/uL Lymphocytes # 0.6 L (1.0-4.8) k/uL D-Dimer 1.77 H (<0.60) mg/L FEU Sodium 132 L (137-145) mmol/L Glucose (74-99) mg/dL Calcium 8.2 L (8.4-10.2) mg/dL Total Protein 5.8 L (6.3-8.2) g/dL Albumin 2.7 L (3.5-5.0) g/dL 11/23/23 11/23/23 Range/Units 07:47 07:47 WBC 13.7 H (3.8-10.6) k/uL RBC (4.30-5.90) m/uL Hgb 10.6 L (13.0-17.5) gm/dL Hct 37.8 L (39.0-53.0) % MCH 23.6 L (25.0-35.0) pg MCHC 28.0 L (31.0-37.0) g/dL RDW 16.8 H (11.5-15.5) % Neutrophils # 12.6 H (1.3-7.7) k/uL Lymphocytes # 0.5 L (1.0-4.8) k/uL D-Dimer (<0.60) mg/L FEU Sodium 136 L (137-145) mmol/L Glucose 106 H (74-99) mg/dL Calcium (8.4-10.2) mg/dL Total Protein 6.2 L (6.3-8.2) g/dL Albumin 2.9 L (3.5-5.0) g/dL
--- NOTE | 2023-11-23 13:05 | P.CNPUL ---
History of Present Illness Consult date: 11/23/23 Requesting physician: Julien Mcfarlane Reason for consult: dyspnea, cough, hypoxemia, pneumonia, abnormal CXR/CT Chief complaint: Shortness of breath. History of present illness: Pulmonary consult dated November 23, 2023. 78-year-old male seen in room 22, emergency department. He came into the hosp ital, on November 21 complaining of shortness of breath. He had been feeling well for about 5 days prior to admission. In addition to shortness of breath, he had weakness, chest congestion, cough, decreased appetite. The patient was evaluated in the emergency department, and is being admitted for a combination of CHF, and possible underlying pneumonia. Currently, the patient is on 4 L of oxygen. He does not appear to be in any distress. He does have a rattling chest, and a congested cough. His chest x-ray shows bilateral infiltrates, left greater than right. He was tested for coronavirus, and tested negative. His N- terminal proBNP was elevated at 3500. He may have tested positive for co ronavirus as an outpatient. He is a lifelong non-smoker. He has a history of hypertension, depression, gastric bypass. The patient does have chronic lower extremity edema. Laboratory data includes a white count 13.7, hemoglobin 10.6, hematocrit 37.8, and a normal platelet count. D-dimer was 1.77. Sodium 136, potassium 4, chlorides 106, CO2 25, BUN 16, and creatinine 0.73. Glucose 106. Albumin was 2.9. Influenza A, influenza B, RSV, and coronavirus testing, were all negative. CT angiogram was negative for pulmonary embolism. It showed some airspace consolidation, left lung, and right lung, left greater than right. It did not have a pattern of coronavirus associated pneumonia. Review of Systems REVIEW OF SYSTEMS: CONSTITUTIONAL: Weakness. NEUROLOGIC: [ Negative.] HEENT: [ Negative.] CARDIAC: [Negative.] PULMONARY: Shortness of breath, cough, chest congestion. GI: Decreased appetite. : [Negative.] RHEUMATOLOGIC: [ Negative.] IMMUNOLOGIC: [ Negative.] ENDOCRINE: [Negative. ] DERMATOLOGIC: [Negative.] Past Medical History Past Medical History: Hypertension Additional Past Medical History / Comment(s): apendicitis History of Any Multi-Drug Resistant Organisms: None Reported Past Surgical History: Bariatric Surgery, Cholecystectomy Additional Past Surgical History / Comment(s): gastric bypass, Past Anesthesia/Blood Transfusion Reactions: No Reported Reaction Past Psychological History: Depression Smoking Status: Never smoker Past Alcohol Use History: None Reported Past Drug Use History: None Reported Medications and Allergies Home Medications Medication Instructions Recorded Confirmed Type Metoprolol Succinate [Toprol XL] 50 mg PO HS 03/04/23 11/23/23 History Omeprazole 20 mg PO HS 03/04/23 11/23/23 History Benazepril [Lotensin] 10 mg PO HS 11/23/23 11/23/23 History Nirmatrelvir/Ritonavir [Paxlovid 3 tab PO BID 11/23/23 11/23/23 History 150-100 mg Dose Pack] Primidone [Mysoline] 250 mg PO HS 11/23/23 11/23/23 History Venlafaxine HCl [Effexor XR] 150 mg PO HS 11/23/23 11/23/23 History Allergies Allergy/AdvReac Type Severity Reaction Status Date / Time No Known Allergies Allergy Verified 11/23/23 08:39 Physical Exam Osteopathic Statement: *. No significant issues noted on an osteopathic structural exam other than those noted in the History and Physical/Consult. Vitals: Vital Signs Pulse Resp BP Pulse Ox 11/23/23 11:05 71 24 124/80 93 L 11/23/23 08:00 64 18 140/72 98 11/23/23 02:58 59 L 16 132/76 97 11/23/23 01:47 20 11/23/23 00:29 71 20 158/86 97 11/22/23 22:01 73 22 154/80 97 11/22/23 19:15 75 24 144/82 98 Intake and Output 11/22/23 11/23/23 11/23/23 22:59 06:59 14:59 Other: Weight 131.542 kg No acute distress, oriented 3. No respiratory distress. No audible wheezing. Currently on 4 L of oxygen. HEENT examination is grossly unremarkable. Mucous membranes are moist. No oral lesions. Neck supple. Full range of motion. No adenopathy thyromegaly or neck vein distention. Cardiovascular examination reveals regular rhythm rate. S1-S2 normal. No S3 or S4. No discernible murmur noted. Heart rate 71 bpm. Lungs reveal scattered bilateral rhonchi. Breath sounds equal. Saturations are 98% on 4 L. No crackles. Abdomen soft bowel sounds are heard. No masses or tenderness. Extremities are intact. No cyanosis or clubbing. 1+ pitting edema, which is chronic. Skin is without rash or lesion. Neurologic examination is brief but nonfocal. Results - Laboratory Findings CBC and BMP: 11/23/23 07:47 11/23/23 07:47 PT/INR, D-dimer PT 11.6 sec (10.0-12.5) 11/22/23 20:19 INR 1.1 (<1.2) 11/22/23 20:19 D-Dimer 1.77 mg/L FEU (<0.60) H 11/22/23 20:19 Abnormal lab findings: Abnormal Labs 11/22/23 11/22/23 11/22/23 20:19 20:19 20:19 WBC 11.7 H RBC 3.92 L Hgb 9.5 L Hct 31.5 L MCH 24.3 L MCHC 30.2 L RDW 16.7 H Neutrophils # 10.4 H Lymphocytes # 0.6 L D-Dimer 1.77 H Sodium 132 L Glucose Calcium 8.2 L Total Protein 5.8 L Albumin 2.7 L 11/23/23 11/23/23 07:47 07:47 WBC 13.7 H RBC Hgb 10.6 L Hct 37.8 L MCH 23.6 L MCHC 28.0 L RDW 16.8 H Neutrophils # 12.6 H Lymphocytes # 0.5 L D-Dimer Sodium 136 L Glucose 106 H Calcium Total Protein 6.2 L Albumin 2.9 L - Diagnostic Findings Chest x-ray: image reviewed CT scan - chest: image reviewed Assessment and Plan Assessment: Acute hypoxemic respiratory failure, likely multifactorial, in part related to fluid overload/CHF, and bacterial pneumonia. Doubt coronavirus associated pneumonia. History of hypertension. Lifelong non-smoker. History of depression. History of gastric bypass. History of chronic lower extremity edema. Plan: Plan dated November 23, 2023. The patient likely has bacterial pneumonia. Will check a procalcitonin level. He does not appear to have coronavirus associated pneumonia. In addition, the patient may have a component of fluid overload, based on the appearance of the chest x-ray and CAT scan, and the elevated N-terminal proBNP. The patient is placed on azithromycin, and Rocephin. We continue the Decadron. The patient was also placed on breathing treatments. The patient was also given some Lasix. We will continue to follow the patient, and make recommendations along the way. Prognosis is certainly guarded. Time with Patient: Greater than 30
[2023-11-23] MEDS: FUROSEMIDE 10 MG/ML 4 ML VIAL IV STA (14:08)
[2023-11-23] MEDS: AZITHROMYCIN 500 MG TAB PO SCH (14:08)
[2023-11-23] MEDS: VENLAFAXINE HCL ER 150 MG CAP PO SCH (20:20)
[2023-11-23] MEDS: METOPROLOL SUCCINATE (ER) 50 MG TAB.ER.24H PO SCH (20:20)
[2023-11-23] MEDS: PRIMIDONE 250 MG TAB PO SCH (20:20)
[2023-11-23] MEDS: PANTOPRAZOLE 40 MG TABLET PO SCH (20:20)
[2023-11-23] MEDS: lisinopriL 10 MG TAB PO SCH (20:20)
[2023-11-24 06:00] LABS: African American GFR (CKD) >90 (>60 ml/min/1.73 sqM); Anion Gap 5 mmol/L; Blood Urea Nitrogen 25 mg/dL (9-20); Calcium 8.8 mg/dL (8.4-10.2); Carbon Dioxide 23 mmol/L (22-30); Chloride 109 mmol/L (98-107); Glucose 125 mg/dL (74-99); Non-African American GFR(CKD) >90 (>60 ml/min/1.73 sqM); Sodium 137 mmol/L (137-145)
[2023-11-24 06:01] LABS: Potassium 5.1 mmol/L (3.5-5.1)
--- NOTE | 2023-11-24 08:12 | P.PN ---
Subjective Progress Note Date: 11/24/23 Principal diagnosis: Shortness of breath. Pulmonary consult dated November 23, 2023. 78-year-old male seen in room 22, emergency department. He came into the hospital, on November 21 complaining of shortness of breath. He had been feeling well for about 5 days prior to admission. In addition to shortness of breath, he had weakness, chest congestion, cough, decreased appetite. The patient was evaluated in the emergency department, and is being admitted for a combination of CHF, and possible underlying pneumonia. Currently, the patient is on 4 L of oxygen. He does not appear to be in any distress. He does have a rattling chest, and a congested cough. His chest x-ray shows bilateral infiltrates, left greater than right. He was tested for coronavirus, and tested negative. His N- terminal proBNP was elevated at 3500. He may have tested positive for coronavirus as an outpatient. He is a lifelong non-smoker. He has a history of hypertension, depression, gastric bypass. The patient does have chronic lower extremity edema. Laboratory data includes a white count 13.7, hemoglobin 10.6, hematocrit 37.8, and a normal platelet count. D-dimer was 1.77. Sodium 136, potassium 4, chlorides 106, CO2 25, BUN 16, and creatinine 0.73. Glucose 106. Albumin was 2.9. Influenza A, influenza B, RSV, and coronavirus testing, were all negative. CT angiogram was negative for pulmonary embolism. It showed some airspace consolidation, left lung, and right lung, left greater than right. It did not have a pattern of coronavirus associated pneumonia. Progress note dated November 24, 2023. 78-year-old male seen in the emergency department yesterday. He came in complaining of shortness of breath. Today, he is seen in room 461. He is on 4 L of oxygen. Saturations are 97%. His N-terminal proBNP was 3500. The patient is on azithromycin and Rocephin. His procalcitonin level was 0.31. He appears in no acute distress. The patient feels improved today. He was admitted with a diagnosis of bibasilar pneumonia, left greater than right. Labs today include a sodium 137, potassium 5.1, chlorides 109, CO2 23, anion gap 5, BUN 25, creatinine 0.71. Glucose was 125. Procalcitonin was 0.31. He tested negative for influenza, RSV, and coronavirus. Objective - Vital Signs Vital signs: Vital Signs Temp 98.0 F 11/24/23 07:02 Pulse 68 11/24/23 07:02 Resp 17 11/24/23 07:02 BP 137/75 11/24/23 07:02 Pulse Ox 97 11/24/23 07:02 FiO2 Intake & Output 11/23/23 11/24/23 11/24/23 18:59 06:59 18:59 Weight 101 kg Other: # Voids 2 - Exam No acute distress, oriented 3. No respiratory distress. No audible wheezing. Currently on 4 L of oxygen. HEENT examination is grossly unremarkable. Mucous membranes are moist. No oral lesions. Neck supple. Full range of motion. No adenopathy thyromegaly or neck vein distention. Cardiovascular examination reveals regular rhythm rate. S1-S2 normal. No S3 or S4. No discernible murmur noted. Heart rate 68 bpm. Lungs reveal scattered bilateral rhonchi. Breath sounds equal. Saturations are 97 % on 4 L. No crackles. Abdomen soft bowel sounds are heard. No masses or tenderness. Extremities are intact. No cyanosis or clubbing. 1+ pitting edema, which is chronic. Skin is without rash or lesion. Neurologic examination is brief but nonfocal. - Labs CBC & Chem 7: 11/23/23 07:47 11/24/23 05:05 Labs: Abnormal Lab Results - Last 24 Hours (Table) 11/23/23 11/23/23 11/23/23 Range/Units 07:47 07:47 07:47 WBC 13.7 H (3.8-10.6) k/uL Hgb 10.6 L (13.0-17.5) gm/dL Hct 37.8 L (39.0-53.0) % MCH 23.6 L (25.0-35.0) pg MCHC 28.0 L (31.0-37.0) g/dL RDW 16.8 H (11.5-15.5) % Neutrophils # 12.6 H (1.3-7.7) k/uL Lymphocytes # 0.5 L (1.0-4.8) k/uL Sodium 136 L (137-145) mmol/L Chloride (98-107) mmol/L BUN (9-20) mg/dL Glucose 106 H (74-99) mg/dL Total Protein 6.2 L (6.3-8.2) g/dL Albumin 2.9 L (3.5-5.0) g/dL Procalcitonin 0.31 H (0.02-0.09) ng/mL 11/24/23 Range/Units 05:05 WBC (3.8-10.6) k/uL Hgb (13.0-17.5) gm/dL Hct (39.0-53.0) % MCH (25.0-35.0) pg MCHC (31.0-37.0) g/dL RDW (11.5-15.5) % Neutrophils # (1.3-7.7) k/uL Lymphocytes # (1.0-4.8) k/uL Sodium (137-145) mmol/L Chloride 109 H (98-107) mmol/L BUN 25 H (9-20) mg/dL Glucose 125 H (74-99) mg/dL Total Protein (6.3-8.2) g/dL Albumin (3.5-5.0) g/dL Procalcitonin (0.02-0.09) ng/mL Assessment and Plan Assessment: Acute hypoxemic respiratory failure, likely multifactorial, in part related to fluid overload/CHF, and bacterial pneumonia. Doubt coronavirus associated pneumonia. Recent outpatient positive test for coronavirus. History of hypertension. Lifelong non-smoker. History of depression. History of gastric bypass. History of chronic lower extremity edema. Plan: Plan dated November 23, 2023. The patient likely has bacterial pneumonia. Will check a procalcitonin level. He does not appear to have coronavirus associated pneumonia. In addition, the patient may have a component of fluid overload, based on the appearance of the chest x-ray and CAT scan, and the elevated N-terminal proBNP. The patient is placed on azithromycin, and Rocephin. We continue the Decadron. The patient was also placed on breathing treatments. The patient was also given some Lasix. We will continue to follow the patient, and make recommendations along the way. Prognosis is certainly guarded. Plan dated November 24, 2023. The patient appears to be doing much better. His 4 L saturation is 97%. His breathing is improved. His procalcitonin level was 0.31. He continues on azithromycin and Rocephin. Saturations are 97%. His N-terminal proBNP was el evated at 3500. Labs, x-rays, and medications are reviewed. The patient continues on Decadron and breathing treatments. We will continue to follow make recommendations along the way. Time with Patient: Less than 30
[2023-11-24 09:29] LABS: Basophils # (A) 0.03 X 10*3/uL (0.00-0.10); Basophils % (A) 0.2 %; Eosinophils # (A) 0 X 10*3/uL (0.04-0.35); Eosinophils % (A) 0 %; HCT 32.3 % (39.6-50.0); HGB 9.7 g/dL (13.0-17.0); Lymphocytes # (A) 0.62 X 10*3/uL (0.90-5.00); Lymphocytes % (A) 4.5 %; MCH 24.6 pg (27.0-32.0); Mean Platelet Volume 13.9 FL (9.5-12.2); Monocytes # (A) 0.68 X 10*3/uL (0.20-1.00); Monocytes % (A) 4.9 %; NRBC Per 100 WBC 0 X 10*3/uL (0.00-0.01); Neutrophils # (A) 12.26 X 10*3/uL (1.80-7.70); Neutrophils % (A) 89.3 %; Platelet Count 169 X 10*3/uL (140-440); RBC 3.94 X 10*6/uL (4.40-5.60); WBC 13.74 X 10*3/uL (4.50-10.00)
[2023-11-24] MEDS: ENOXAPARIN 40 MG/0.4 ML SYRINGE SQ SCH (10:15)
--- NOTE | 2023-11-24 13:29 | P.PN ---
Subjective Progress Note Date: 11/24/23 Hospital Course: 78-year-old male with history of hypertension, tremor, peptic ulcer disease, d epression presenting with worsening shortness of breath and hypoxia. He was tested positive for COVID-19 in outpatient setting, was started on Paxlovid, had worsening shortness of breath and hypoxia, and decided present to the hospital. In the ED, vital signs within normal limits except saturating 97% on 4 L. Currently on 93% at room air WBC 11.7, hemoglobin 9.5 slightly below baseline, D-dimer 1.77, sodium 132, creatinine 0.80, troponin 0.023, proBNP 3500, respiratory viral panel negative. He was given 10 mg of IV dexamethasone. He was also started on IV fluids. CTA chest showed dependent airspace consolidations on the left and right showed multilobar pneumonia, no evidence of PE. EKG independently interpreted, shows sinus rhythm. Chest x-ray independently interpreted, showed some interstitial opacities. Patient being admitted for acute hypoxic respiratory failure in the setting of recent COVID-19 infection. Pulmonology also consulted. Patient was initially started on dexame thasone, and also started on IV antibiotics per pulmonology. Respiratory function improving. Subjective: Patient seen and examined at bedside. No acute events overnight. Shortness of breath slightly improved. Still on nasal cannula. Pertinent positives and negatives as discussed above, a complete review of systems was performed and all other systems are negative. Vitals Signs Reviewed. General: nontoxic, no distress, appears at stated age, morbidly obese Derm: warm, dry Head: atraumatic, normocephalic, symmetric Eyes: EOMI, no lid lag, anicteric sclera, pupils equal round reactive to light ENT: Nose and ears atraumatic Neck: No thyromegaly, supple Mouth: no lip lesion, mucus membranes moist Cardiovascular: S1S2 reg, no murmur, 2+ pitting edema Lungs: Bibasilar rales, no wheeze, no accessory muscle use, supplemental oxygen Abdominal: soft, nontender to palpation, no guarding, no appreciable organomegaly Ext: no gross muscle atrophy, muscle strength muscle strength 5 out of 5 in all 4 extremities, no contractures Neuro: CN II-XII grossly intact, right arm resting tremor Psych: Alert, oriented, appropriate affect Data Reviewed Today: Pertinent Labs: WBC 13.74, hemoglobin 9.7, platelet 169, potassium 5.1, creatinine 0.71, magnesium 2, procalcitonin 0.31 Imaging: No new imaging Assessment and Plan: Active: Acute hypoxic respiratory failure Recent diagnosis of COVID-19 pneumonia Superimposed bacterial pneumonia Elevated D-dimer, PE ruled out Lower extremity edema Leukocytosis -Continue to wean oxygen -Continue on oral dexamethasone 6 mg daily, completed 10-day course -Pulmonology note reviewed, patient started on azithromycin 500 mg p.o. daily, IV ceftriaxone 1 g every 24 hours -Patient was given a dose of 40 mg IV Lasix yesterday -His last echocardiogram was about 2 years ago, he claims that he has been having lower extremity edema for the last 8 months, and has not worsened recently. Chronic normocytic anemia, at baseline -Outpatient workup Hyponatremia, resolved Chronic: Depression Hypertension Peptic ulcer disease Tremor DVT ppx: Lovenox Code status: Full code Anticipated discharge place: Pending clinical course Anticipated discharge time: Pending clinical course Objective - Vital Signs Vital signs: Vital Signs Temp 98.0 F 11/24/23 07:02 Pulse 68 11/24/23 07:02 Resp 17 11/24/23 07:02 BP 137/75 11/24/23 07:02 Pulse Ox 97 11/24/23 07:02 FiO2 Intake & Output 11/23/23 11/24/23 11/24/23 18:59 06:59 18:59 Weight 101 kg Other: # Voids 2 - Labs CBC & Chem 7: 11/24/23 06:46 11/24/23 05:05 Labs: Abnormal Lab Results - Last 24 Hours (Table) 11/23/23 11/24/23 11/24/23 Range/Units 07:47 05:05 06:46 WBC 13.74 H (4.50-10.00) X 10*3/uL RBC 3.94 L (4.40-5.60) X 10*6/uL Hgb 9.7 L (13.0-17.0) g/dL Hct 32.3 L (39.6-50.0) % MCH 24.6 L (27.0-32.0) pg MCHC 30.0 L (32.0-37.0) g/dL RDW 17.0 H (11.5-14.5) % MPV 13.9 H (9.5-12.2) FL Immature Gran # 0.15 H (0.00-0.04) X 10*3/uL Neutrophils # 12.26 H (1.80-7.70) X 10*3/uL Lymphocytes # 0.62 L (0.90-5.00) X 10*3/uL Eosinophils # 0 L (0.04-0.35) X 10*3/uL Chloride 109 H (98-107) mmol/L BUN 25 H (9-20) mg/dL Glucose 125 H (74-99) mg/dL Procalcitonin 0.31 H (0.02-0.09) ng/mL
[2023-11-25 06:33] LABS: African American GFR (CKD) >90 (>60 ml/min/1.73 sqM); Anion Gap 5 mmol/L; Blood Urea Nitrogen 29 mg/dL (9-20); Calcium 8.8 mg/dL (8.4-10.2); Carbon Dioxide 24 mmol/L (22-30); Chloride 108 mmol/L (98-107); Glucose 117 mg/dL (74-99); Non-African American GFR(CKD) 86 (>60 ml/min/1.73 sqM); Potassium 3.7 mmol/L (3.5-5.1); Sodium 137 mmol/L (137-145)
[2023-11-25 10:13] VITALS: RESP 17
[2023-11-25 13:21] LABS: Anisocytosis Slight; Basophils % (A) 0 %; Eosinophils % (A) 0 %; HCT 33.5 % (39.0-53.0); Hypochromasia Marked; Lymphocytes # (A) 0.6 k/uL (1.0-4.8); Lymphocytes % (A) 4 %; MCH 24.9 pg (25.0-35.0); MCV 83.1 fL (80.0-100.0); Mean Platelet Volume 10.3; Monocytes # (A) 1.2 k/uL (0-1.0); Monocytes % (A) 8 %; Neutrophils # (A) 13.3 k/uL (1.3-7.7); Neutrophils % (A) 87 %; Platelet Count 212 k/uL (150-450); RBC 4.03 m/uL (4.30-5.90); RDW 16.7 % (11.5-15.5); WBC 15.4 k/uL (3.8-10.6)
--- NOTE | 2023-11-25 13:53 | P.DS ---
Providers Date of admission: 11/25/23 12:30 Expected date of discharge: 11/25/23 Attending physician: Julien Mcfarlane MD Consults: 11/23/23 10:52 Consult Physician Routine Consulting Provider: Edgar Niño Consult Reason/Comments: hypoxic respiratory failure, covid pneumonia Do you want consulting provider notified?: Yes Primary care physician: Parisa Hernandez Hospital Course: Discharge Diagnosis: Acute hypoxic respiratory failure Recent diagnosis of COVID-19 pneumonia Superimposed bacterial pneumonia Elevated D-dimer, PE ruled out Lower extremity edema Leukocytosis, reactive and steroid induced Chronic normocytic anemia, at baseline Hyponatremia Hospital Course: 78-year-old male with history of hypertension, tremor, peptic ulcer disease, depression presenting with worsening shortness of breath and hypoxia. He was tested positive for COVID-19 in outpatient setting, was started on Paxlovid, had worsening shortness of breath and hypoxia, and decided to present to the hospital. In the ED, vital signs within normal limits except saturating 97% on 4 L. Currently on 93% at room air WBC 11.7, hemoglobin 9.5 slightly below baseline, D-dimer 1.77, sodium 132, creatinine 0.80, troponin 0.023, proBNP 3500, respiratory viral panel negative. He was given 10 mg of IV dexamethasone. He was also started on IV fluids. CTA chest showed dependent airspace consolidations on the left and right showed multilobar pneumonia, no evidence of PE. EKG independently interpreted, shows sinus rhythm. Chest x-ray independently interpreted, showed some interstitial opacities. Patient being admitted for acute hypoxic respiratory failure in the setting of recent COVID-19 infection. Pulmonology also consulted. Patient was initially started on dexamethasone, and also started on IV antibiotics per pulmonology. Respiratory function improving. On room air at the time of discharge. Being discharged on oral dexamethasone and oral cefdinir. Follow-up with PCP. Patient seen and examined at bedside. Vital signs reviewed and stable. General: nontoxic, no distress, appears at stated age, morbidly obese Derm: warm, dry Head: atraumatic, normocephalic, symmetric Eyes: EOMI, no lid lag, anicteric sclera, pupils equal round reactive to light ENT: Nose and ears atraumatic Neck: No thyromegaly, supple Mouth: no lip lesion, mucus membranes moist Cardiovascular: S1S2 reg, no murmur, 2+ pitting edema Lungs: Bibasilar rales, no wheeze, no accessory muscle use Abdominal: soft, nontender to palpation, no guarding, no appreciable organomegaly Ext: no gross muscle atrophy, muscle strength muscle strength 5 out of 5 in all 4 extremities, no contractures Neuro: CN II-XII grossly intact, right arm resting tremor Psych: Alert, oriented, appropriate affect A total of 33 minutes of time were spent preparing this complex discharge summary. Patient was discharged on 11/25/2023 at 1350. Patient Condition at Discharge: Stable Plan - Discharge Summary Discharge Rx Participant: No New Discharge Prescriptions: New Cefdinir 300 mg PO Q12HR #4 cap dexAMETHasone ORAL [Hexadrol] 6 mg PO DAILY #18 tab Continue Primidone [Mysoline] 250 mg PO HS Metoprolol Succinate [Toprol XL] 50 mg PO HS Omeprazole 20 mg PO HS Venlafaxine HCl [Effexor XR] 150 mg PO HS Benazepril [Lotensin] 10 mg PO HS Discontinued Nirmatrelvir/Ritonavir [Paxlovid 150-100 mg Dose Pack] 3 tab PO BID Discharge Medication List Metoprolol Succinate [Toprol XL] 50 mg PO HS 03/04/23 [History] Omeprazole 20 mg PO HS 03/04/23 [History] Benazepril [Lotensin] 10 mg PO HS 11/23/23 [History] Primidone [Mysoline] 250 mg PO HS 11/23/23 [History] Venlafaxine HCl [Effexor XR] 150 mg PO HS 11/23/23 [History] Cefdinir 300 mg PO Q12HR #4 cap 11/25/23 [Rx] dexAMETHasone ORAL [Hexadrol] 6 mg PO DAILY #18 tab 11/25/23 [Rx] Follow up Appointment(s)/Referral(s): Parisa Hernandez DO [Primary Care Provider] - 1-2 days Patient Instructions/Handouts: Bacterial Pneumonia (DC) Activity/Diet/Wound Care/Special Instructions: Please see your PCP. Discharge Disposition: HOME SELF-CARE
[2023-11-25 14:20] VITALS: BP 148/74; PULSE 60; TEMP 98
--- NOTE | 2023-11-25 16:30 | P.PN ---
Subjective Progress Note Date: 11/25/23 78-year-old male seen in room 22, emergency department. He came into the hospital, on November 21 complaining of shortness of breath. He had been feeling well for about 5 days prior to admission. In addition to shortness of breath, he had weakness, chest congestion, cough, decreased appetite. The patient was evaluated in the emergency department, and is being admitted for a combination of CHF, and possible underlying pneumonia. Currently, the patient is on 4 L of oxygen. He does not appear to be in any distress. He does have a rattling chest, and a congested cough. His chest x-ray shows bilateral infiltrates, left greater than right. He was tested for coronavirus, and tested negative. His N- terminal proBNP was elevated at 3500. He may have tested positive for coronavirus as an outpatient. He is a lifelong non-smoker. He has a history of hypertension, depression, gastric bypass. The patient does have chronic lower extremity edema. Laboratory data includes a white count 13.7, hemoglobin 10.6, hematocrit 37.8, and a normal platelet count. D-dimer was 1.77. Sodium 136, potassium 4, chlorides 106, CO2 25, BUN 16, and creatinine 0.73. Glucose 106. Albumin was 2.9. Influenza A, influenza B, RSV, and coronavirus testing, were all negative. CT angiogram was negative for pulmonary embolism. It showed some airspace consolidation, left lung, and right lung, left greater than right. It did not have a pattern of coronavirus associated pneumonia. Progress note dated November 24, 2023. 78-year-old male seen in the emergency department yesterday. He came in complaining of shortness of breath. Today, he is seen in room 461. He is on 4 L of oxygen. Saturations are 97%. His N-terminal proBNP was 3500. The patient is on azithromycin and Rocephin. His procalcitonin level was 0.31. He appears in no acute distress. The patient feels improved today. He was admitted with a diagnosis of bibasilar pneumonia, left greater than right. Labs today include a sodium 137, potassium 5.1, chlorides 109, CO2 23, anion gap 5, BUN 25, creatinine 0.71. Glucose was 125. Procalcitonin was 0.31. He tested negative for influenza, RSV, and coronavirus. 11/25/2023, I am seeing the patient for a follow-up. Patient is calm and comfortable and the patient is currently on room air oxygen with a pulse ox of 93%. The patient was diagnosed having COVID-19 infection in outpatient clinic on 11/19/2023. Repeat testing was negative in our hospital. CT of the chest that was done at the time of admission showed some dependent airspace consolidation consistent with lower lobe pneumonia. No evidence of any acute pulmonary embolism. The white cell count of 15.4 with a hemoglobin of 10 and a platelet count of 212. BUN is 29 with a creatinine of 0.8 and sodium levels at 137. Procalcitonin level is at 0.31 at the time of admission. The rest of the viral screen was essentially negative from 11/23/2023. The patient has no specific complaints otherwise for now. He will be discharged home on a course of cefdinir and Decadron. Denies having any cough or sputum production. No oth er significant events overnight. Objective - Vital Signs Vital signs: Vital Signs Temp 97.5 F L 11/25/23 08:00 Pulse 57 L 11/25/23 08:00 Resp 17 11/25/23 08:00 BP 142/79 11/25/23 08:00 Pulse Ox 93 L 11/25/23 12:21 FiO2 Intake & Output 11/24/23 11/25/23 11/25/23 18:59 06:59 18:59 Other: # Voids 4 2 - Exam No acute distress, oriented 3. No respiratory distress. No audible wheezing. Currently on room air oxygen HEENT examination is grossly unremarkable. Mucous membranes are moist. No oral lesions. Neck supple. Full range of motion. No adenopathy thyromegaly or neck vein distention. Cardiovascular examination reveals regular rhythm rate. S1-S2 normal. No S3 or S4. No discernible murmur noted. Lungs reveal scattered bilateral rhonchi. Breath sounds equal. No crackles. Abdomen soft bowel sounds are heard. No masses or tenderness. Extremities are intact. No cyanosis or clubbing. 1+ pitting edema, which is chronic. Skin is without rash or lesion. Neurologic examination is brief but nonfocal. - Labs CBC & Chem 7: 11/25/23 12:30 11/25/23 05:27 Labs: Abnormal Lab Results - Last 24 Hours (Table) 11/25/23 Range/Units 05:27 Chloride 108 H (98-107) mmol/L BUN 29 H (9-20) mg/dL Glucose 117 H (74-99) mg/dL Assessment and Plan Plan: Acute hypoxemic respiratory failure, likely multifactorial, in part related to fluid overload/CHF, and bacterial pneumonia. Doubt coronavirus associated pneumonia. COVID-19 test came back negative and the patient has mild elevation of the procalcitonin level. CTA of the chest was reviewed. Recent outpatient positive test for coronavirus, tested positive on 11/19/2023, repeat testing from this current admission was negative. History of hypertension. Lifelong non-smoker. History of depression. History of gastric bypass. History of chronic lower extremity edema. Plan: Oxygenation is improved and the patient can be discharged home on a course of cefdinir and Decadron to be followed up on outpatient basis. Clinically stable. No signs of any significant respite distress.
--- NOTE | 2023-12-02 16:49 | CDI ---
Documentation Clarification Form Date: 12/02/2023 04:29:21 PM From: Imelda Camargo Phone: Admit Date: 11/25/2023 12:30:00 PM Patient Name: Tuan Sheikh Visit Number: [id number] Discharge Date: 11/25/2023 03:41:00 PM ATTENTION: The Clinical Documentation Specialists (CDI) and [facility] Coding Staff appreciate your assistance in clarifying documentation. Please respond to the clarification below the line at the bottom and electronically sign. The CDI & [facility] Coding staff will review the response and follow-up if needed. Please note: Queries are made part of the Legal Health Record. If you have any questions, please contact the author of this message via ITS. Dr. Julien Mcfarlane Your patient has the documented diagnosis of unspecified CHF Consult Note and Progress Notes. Additional information regarding the type and acuity of CHF is requested. History/Risk Factors: 79yo M, AHRF, fluid overload, bacterial PNA, recent COVID/PNA, HTN, depression, bariatric Sx, tremor,PUD Clinical Indicators: VS/Pulse OX: 97-98 BNP: 3500 Echocardiogram Results: His lastechocardiogramwas about 2 years ago, he claims that he has been havinglower extremity edemafor the last 8 months, and has not worsened recently. Chest X Ray: Cardiomegalyand mild pulmonary vascularcongestion. Correlate with BNP for CHF. Treatment: Patient was initially started on dexamethasone, and also started on IV antibiotics per pulmonology. Respiratory function improving. On room air at the time of discharge. Being discharged on oraldexamethasoneand oral cefdinir. Follow-upwith PCP. In your professional opinion, can you please clarify the acuity and type of CHF if known? [ ] Acute Systolic Heart Failure (reduced EF) [ ] Acute on Chronic Systolic Heart Failure (reduced EF) [ ] Acute Diastolic Heart Failure (preserved EF) [ ] Acute on Chronic Diastolic Heart Failure (preserved EF) [ ] Acute Systolic & Diastolic Heart Failure [ ] Acute on Chronic Heart Failure Systolic & Diastolic Heart Failure [ x ] Other, please specify No hx of CHF [ ] Unable to determine (Template Last Revised: August 2020) MTDD
== END 2023-11-25 15:41 | disposition home or self-care (01) | DRG 189 ==
LOC: EC 19:06 → 3SCARD 23:25 → 4SSUR 11-23 14:32 → OBSVTOIN 11-25 12:30
PROVIDERS: ADMIT Student in an Organized Health Care Education/Training Program; ATTEND Student in an Organized Health Care Education/Training Program
DX: J96.01 Acute respiratory failure with hypoxia (principal); J15.9 Unspecified bacterial pneumonia; E87.1 Hypo-osmolality and hyponatremia; R62.7 Adult failure to thrive; F32.A Depression, unspecified; I10 Essential (primary) hypertension; E87.70 Fluid overload, unspecified; R60.0 Localized edema; D64.9 Anemia, unspecified; T38.0X5A Adverse effect of glucocorticoids and synthetic analogues, initial encounter; D72.828 Other elevated white blood cell count; R25.1 Tremor, unspecified; Z86.16 Personal history of COVID-19; Z98.84 Bariatric surgery status; Z87.11 Personal history of peptic ulcer disease; Z79.899 Other long term (current) drug therapy
CPT/HCPCS: 36415; 71045; 71275; 80048; 80053; 83605; 83735; 83880; 84100; 84145; 84484; 85025; 85379; 85610; 85730; 87636; 93005; 94760; 96361; 96365; 96375; 99285

== ENCOUNTER → 2024-07-06 | Outpatient (CLI) | payer MEDICARE ==
--- NOTE | 2024-07-08 21:31 | MR ---
EXAMINATION TYPE: MR brain wo/w con DATE OF EXAM: 07/06/2024 5:52 PM COMPARISON: Not available at this location. CLINICAL INDICATION: Male, 79 years old with history of G20.C PARKINSONISM, UNSPECIFIED, Parkinson's, shaking arms/hands, difficulty walking, Hx Prostate cancer 2005 TECHNIQUE: Multiplanar, multiecho imaging on a 3.0 Lidya magnet is performed through the brain. Stud y is performed within 24 hours of arrival to the hospital.Multiplanar, multiecho imaging on a 3.0 Eliana la magnet is performed through the knee. IV Contrast: 12.5 mL Gadobutrol (None, if empty) FINDINGS: The craniovertebral junction is normal. The pituitary has asymmetric signal slightly greater on the right. Correlate with pituitary laboratory results. If additional imaging would be of benefit, dedica shannen MRI with contrast could be performed. Diffusion-weighted imaging is performed. No abnormal hyperintensity is present to suggest an acute i ntracranial infarct or acute ischemic change. There are scattered punctate areas of hyperintensity on T2 and Inversion Recovery weighted sequences which are non-specific but can be related to microvascular ischemic changes. Ventricles and sulci are appropriate for the patient age. IMPRESSION: 1. Some heterogenous appearance to the pituitary. Correlate with laboratory results. 2. Mild periventricular and deep white matter chronic appearing ischemic type changes. [facility], , 07/08/2024 9:29 PM
== END | disposition home or self-care (01) ==
LOC: RADMRIMAIN 16:14
PROVIDERS: ATTEND Psychiatry & Neurology Neurology
DX: G20.A1 Parkinson's disease without dyskinesia, without mention of fluctuations (principal); I67.82 Cerebral ischemia; Z85.46 Personal history of malignant neoplasm of prostate
CPT/HCPCS: 70553; A9585